=== PATIENT | female | born 1955 | race Caucasian/White ===

== ENCOUNTER → 2016-12-17 | Outpatient (CLI) | payer BC ==
--- NOTE | 2016-12-18 09:14 | RADRPT ---
PROCEDURE: XR pelvis/right hip. CLINICAL INDICATION: Hip pain TECHNIQUE: AP pelvis/AP and lateral right hip views performed COMPARISON: No prior studies are available for comparison. FINDINGS: There is moderate to severe right hip osteoarthrosis. This is associated with joint space narrowing, subchondral sclerosis , subchondral cyst formation and osteophytosis. There is normal mineralizati on. No fractures or osseous lesions are identified. The soft tissues are unremarkable. IMPRESSION: Moderate to severe right hip osteoarthrosis. RPTAT: HGDB .Mason Kyle MD, MD Date Time Electronically viewed and signed by .Mason Kyle MD, on 12/18/2016 09:14 .B/
== END | disposition home or self-care (01) ==
LOC: HKI 10:01
PROVIDERS: ATTEND Orthopaedic Surgery
DX: M25.551 Pain in right hip (principal); M16.11 Unilateral primary osteoarthritis, right hip
CPT/HCPCS: 73502; G0463

== ENCOUNTER → 2017-01-16 | Outpatient (CLI) | payer BC ==
[~2017-01-16] MED LIST: ALEN40TA2 PO; ASPI325T32 PO; ESTR2TAB PO; GABA300C16 PO; HYDR-3498 PO; NAPR-688 PO; PANT40TA4 PO; TRAM-40 PO; TRAM50TA2 PO; TRAZ100T15 PO
== END | disposition home or self-care (01) ==
LOC: HKI 09:19
PROVIDERS: ATTEND Orthopaedic Surgery
DX: M25.551 Pain in right hip (principal); M16.11 Unilateral primary osteoarthritis, right hip
CPT/HCPCS: 87081; G0463

== ENCOUNTER 2017-01-22 08:09 | Inpatient (IN) | payer BC ==
[2017-01-21 16:20] VITALS: BMI 21.7
[2017-01-22] VITALS (27 sets, daily range): BP systolic 95–127; BP diastolic 41–87; PULSE 75–98; RESP 12–36; Ht 165.1 cm; Wt 60.8 kg
[~2017-01-22] VITALS: Ht 165.1 cm; Wt 60.8 kg
[~2017-01-22 08:09] MED LIST changes: -ALEN40TA2 PO; -ASPI325T32 PO; +BUPIVACAINE LIPOSOME/PF 266 MG/20 ML VIAL INFIL ONE; +CEFAZOLIN 2GM/50 ML (PMX) 50 ML X1 BEFORE INCISION IVPB ONE; +CELECOXIB 400 MG PO X1 DOSE PO ONE; -ESTR2TAB PO; +ETOMIDATE 20 MG INJ ONE; -GABA300C16 PO; -HYDR-3498 PO; -NAPR-688 PO; +PAIN COCKTAIL-CEFUROXIME IRR ONE; -PANT40TA4 PO; +PREGABALIN 300 MG PO X1 PO ONE; +PROPOFOL 1000 MG INJ ONE; -TRAM-40 PO; -TRAM50TA2 PO; +TRANEXAMIC ACID in SOD CHLORIDE 0.9% 100 ML FOR INTRAOP IVPB ONE; +TRANEXAMIC ACID in SOD CHLORIDE 0.9% 100 ML ON CALL TO OR IV ONE; -TRAZ100T15 PO; +oxyCODONE (CR) 10 MG TAB [oxyCONTIN] X1 DOSE PO ONE; +traMADOL 50 MG TAB X 1 DOSE PO ONE
[2017-01-22] MEDS ORDERED: GLYCOPYRROLATE 0.4 MG INJ ONE (08:38)
[2017-01-22] MEDS ORDERED: ONDANSETRON 4 MG INJ ONE (08:38)
[2017-01-22] MEDS ORDERED: CEFAZOLIN 1 GM INJ ONE (08:38)
[2017-01-22] MEDS ORDERED: MIDAZOLAM 1 MG/ML 2 ML INJ ONE (08:38)
[2017-01-22] MEDS ORDERED: PROPOFOL 20 ML ONE (08:38)
[2017-01-22] MEDS ORDERED: FENTAnyl 50 MCG/ML VIAL ONE (08:38)
[2017-01-22] MEDS ORDERED: NEOSTIGMINE 3 MG/3 ML SYRINGE ONE (08:38)
[2017-01-22] MEDS ORDERED: DEXAMETHASONE 4 MG/ML 1 ML INJ ONE (08:38)
[2017-01-22] MEDS ORDERED: ROCURONIUM 50 MG INJ ONE (08:38)
[2017-01-22] MEDS ORDERED: TRAM-40 PO (09:09)
[2017-01-22] MEDS ORDERED: TRAZ100T15 PO (09:09)
[2017-01-22] MEDS ORDERED: ALEN40TA2 PO (09:09)
[2017-01-22] MEDS ORDERED: ESTR2TAB PO (09:09)
[2017-01-22] MEDS ORDERED: GABA300C16 PO (09:29)
[2017-01-22] MEDS ORDERED: NAPR-688 PO (09:30)
--- NOTE | 2017-01-22 09:50 | HPN ---
Date/Time of Note Date/Time of Note DATE: 01/22/17 TIME: 09:50 Interval H&P Admission Note Pt. seen H&P reviewed: No system changes No changes from H&P on 01/15/17 by SIRENA Samuel MD Jan 22, 2017 09:50
[2017-01-22] MEDS ORDERED: EXPAREL NOTE (BUPIVICAINE LIPOSOMAL) XX SCH (11:00)
[2017-01-22] MEDS ORDERED: POLYMYXIN B 500000 UNIT INJ ONE (11:15)
[2017-01-22] MEDS ORDERED: VANCOMYCIN 1 GM INJ ONE (11:15)
[2017-01-22] MEDS ORDERED: LABETALOL HCL 20MG INJ IV PRN (12:00)
[2017-01-22] MEDS ORDERED: hydrALAzine 20 MG INJ IV PRN (12:00)
[2017-01-22] MEDS ORDERED: EPHEDrine SULFATE 50 MG/5 ML SYG IV PRN (12:00)
[2017-01-22] MEDS ORDERED: HYDROmorphONE (0.2 MG/ML) 10ML SYG IV PRN ×3 (12:00)
[2017-01-22] MEDS ORDERED: FENTAnyl 50 MCG/ML VIAL IV PRN ×3 (12:00)
[2017-01-22] MEDS ORDERED: TRIMETHOBENZAMIDE 100 MG/ML VIAL IM PRN (12:00)
[2017-01-22] MEDS ORDERED: ONDANSETRON 4 MG INJ IV PRN ×2 (12:00→13:30)
[2017-01-22] MEDS ORDERED: BACITRACIN 50000 UNITS INJ IRR ONE (12:00)
[2017-01-22] MEDS ORDERED: MIDAZOLAM 1 MG/ML 2 ML INJ IV PRN (12:00)
[2017-01-22] MEDS ORDERED: MEPERIDINE 25 MG INJ IV PRN (12:00)
[2017-01-22] MEDS ORDERED: DIPHENHYDRAMINE 50 MG INJ IV PRN (12:00)
--- NOTE | 2017-01-22 13:23 | OPR ---
Date/Time of Note Date/Time of Note DATE: 01/22/17 TIME: 13:22 Operative Report Free Text/Dictation Dictation # [id number] Procedure Date: Jan 22, 2017 Preoperative Diagnosis Right Hip OA Postoperative Diagnosis Same Operation Performed Right Anterior ADRIANO Surgeon: SIRENA ROBLES MD senior care assistant: MARIA TERESA SANCHEZ PA-C Anesthesia: general, spinal Anesthesiologist: Shaw Cervantes M.D. Estimated Blood Loss: 250 - 300 ml's Specimens Femoral Head Tubes/Drains Hemovac x 1 Complications: None Pt Condition Post Procedure: stable Disposition: PACU SIRENA ROBLES MD Jan 22, 2017 13:23
--- NOTE | 2017-01-22 13:26 | PN ---
Date/Time of Note Date/Time of Note DATE: 01/22/17 TIME: 13:25 Assessment/Plan Lines/Catheters IV Catheter Type (from Nrsg): Peripheral IV Assessment/Plan Assessment/Plan Stable in PACU, s/p right anterior ADRIANO -continue Ancef -pain meds as needed -ASA/SCDs -OOB with PT -check AM labs -monitor drain -d/c vivas in AM XR of the right hip is pending at this time Subjective 24 Hr Interval Summary Stable in PACU. Denies pain. Moving all extremities. Exam/Review of Systems Vital Signs Vitals Vital Signs Date Time Temp Pulse Resp B/P Pulse Ox O2 Delivery O2 Flow Rate FiO2 01/22/17 09:11 98.0 77 16 119/56 98 Room Air Intake and Output 01/21/17 01/21/17 01/22/17 15:00 23:00 07:00 Intake Total 0 ml Balance 0 ml Exam Free Text/Dictation Hemovac: minimal Dressing dry Incision clean, dry, and intact without redness or drainage 5/5 Quadriceps, Tibialis Anterior, EHL, Gastroc, Soleus, Peroneals Normal sensation Palpable DT/PT, CR <2 sec No distal edema MARIA TERESA SANCHEZ PA-C Jan 22, 2017 13:26
--- NOTE | 2017-01-22 13:28 | OPR ---
DATE OF OPERATION: 01/22/2017 PREOPERATIVE DIAGNOSIS: Right hip osteoarthritis. POSTOPERATIVE DIAGNOSIS: Right hip osteoarthritis. PROCEDURE PERFORMED: Right anterior total hip arthroplasty. SURGEON: Sirena Ortiz MD FOLDED TOWEL MACHINE OPERATOR: NANI Pina COMPONENTS USED: DePuy size 50 mm Gription Tippo cup, 50/32 neutral AltrX polyethylene liner, si ze 5 standard Actis stem, 32 plus 1 ceramic head. ANESTHESIA: Spinal plus general endotracheal intubation, plus periarticular injection. ANESTHESIOLOGIST: Shaw Cervantes MD ESTIMATED BLOOD LOSS: 300 mL. INTRAVENOUS FLUIDS: 2300 mL crystalloid. SPECIMEN: Femoral head. DRAINS: Hemovac x1. COMPLICATIONS: None. DISPOSITION: The patient tolerated the procedure well and was taken to the recovery room in stable condition. INDICATIONS: The patient is a 61-year-old woman who has had progressive worsening pain in the right hip. She underwent a previous right hip arthroscopy and subsequently developed worsening pain and arthritic changes. She has not improved with nonsurgical means of treatment to address her pain. I felt she would benefit from a total hip arthroplasty through an anterior approach. The risks, benefits, and alternatives of the procedure were explained in detail to the patient. I e xplained the risks of the surgery to include, but not be limited to: bleeding and possible need for blood transfusion; infection; pain; stiffness; neurovascular injury with possible numbness, weakness , and/or paralysis anywhere from the hip down to the toes; fracture; instability; dislocation; leg l ength inequality; wear and/or loosening of the prosthesis and possible need for future revision; blo od clots; pulmonary embolism; and anesthetic complications such as heart attack, stroke, GI bleed, p neumonia, and/or . Ample time was allowed for the patient to ask questions, all of which were addressed and answered. The patient understood the risks involved and wished to proceed. Informed c onsent was signed prior to the procedure. PROCEDURE: The patient's right hip was initialed with a marking pen in the preoperative area to iden tify the correct operative site. The patient was brought to the operating room and [facility] to the [facility] where a spinal anesthetic was administered. The patient was then anesthetized and intubated. A Sterling catheter was placed. Both feet were placed into well padd ed boots which were then placed into the leg holders of the traction booms. A timeout was performed to confirm that the right side was the correct operative site. The patient was given 2 g of intrav enous Ancef within one hour prior to the procedure. The operative hip was prepped and draped in the usual sterile fashion. A 10 cm oblique incision was made over the anterior aspect of the hip and carried down through subcu taneous tissue and fat with sharp dissection. The tensor fascia almas was incised along the length o f the wound. The tensor fascia muscle was retracted laterally and the sartorius medially. The anter ior circumflex vessels were identified and tied off with 2-0 silk suture and coagulated with the Heap la nena Link plating inspector. The rectus femoris was elevated off the anterior capsule and an anterior capsu lectomy performed. A femoral neck osteotomy was made and the head removed from the acetabulum. The acetabulum was denuded of cartilage circumferentially, as was the femoral head. Retractors were pl aced around the acetabulum. The remnants of the labrum and ligamentum teres were excised. I reamed the acetabulum to the medial wall and then went into an anatomic position and increased the reamer size in 2 mm increments until I got a good bite and was down to bleeding subchondral bone. The Tippo cup was opened and impacted into the acetabulum and sat flush circumferentially, gettin g a good bite. C-arm imaging showed it had about 40 to 45 degrees of abduction and 20 degrees of ant eversion. The real liner was opened and impacted into the acetabulum and sat flush circumferentiall y. Attention was turned towards the femur. The operative leg was carefully lowered to the floor with the leg adducted. The foot was then exter barrington rotated to approximately 110 degrees. A posteromedial release was performed to optimize expos ure. The femoral hook was placed underneath the proximal femur and the hydraulic lift was then used to elevate the femur up out of the wound. The dianne cutter osteotome was used to remove the remai xu overhanging greater trochanter. The femur was then broached, going up in one size increments u ntil it sat flush with the neck cut and a stable fit was achieved. The trial neck and head were ass embled and reduced into the acetabulum. Fluoroscopic imaging showed the components to be in good pos ition and the leg lengths and offsets to be equal. At this point, the trial was dislocated and the trial broach removed. The canal was irrigated and d ried. The real stem was opened and impacted into the femur. The trunnion was irrigated and dried, a nd the real femoral head was impacted onto the trunnion, and reduced into the acetabulum. The soft tissues were infiltrated with a mixture of 150 mg of 0.5% bupivacaine, 8 mg of Duramorph, 3 00 mcg of epinephrine, 30 mg of Toradol, 100 mcg of clonidine, 750 mg of cefuroxime and 86 mL of nor mal saline, followed by an injection of 266 mg of liposomal bupivacaine. At this point the hip was irrigated with a mixture of Betadine/saline and then antibiotic saline with pulsatile lavage. A Hem ovac drain was placed in the deep portion of the wound and brought out the anterolateral thigh. Ther e was good hemostasis. The tensor fascia almas was repaired with a running #1 Vicryl. The deep fat layer was irrigated and closed with 2-0 Stratafix and the subcutaneous layer closed with 3-0 Vicryl and the skin was closed with anthony and then sealed with Dermabond. The drain was secured with 3-0 nylon. The sponge and needle counts were correct at the end of the case. The wound was covered with an occ lusive dressing. The patient was awakened, extubated, and taken to the recovery room in stable cond ition. Dictated By: SIRENA SADLER/ETTA Conf#: [id number] DID#: [id number]
[2017-01-22] MEDS ORDERED: NACL 0.9% 3 ML SYG IV SCH (13:30)
[2017-01-22] MEDS ORDERED: NA PHOSPHATE/BIPHOS 133 ML ENEMA PR PRN (13:30)
[2017-01-22] MEDS ORDERED: DIPHENHYDRAMINE 25 MG CAP PO PRN (13:30)
[2017-01-22] MEDS ORDERED: HYDROCODONE/APAP (5/325) TAB PO PRN (13:30)
[2017-01-22] MEDS ORDERED: BISACODYL 10 MG SUPP PR PRN (13:30)
[2017-01-22] MEDS ORDERED: ASPIRIN (EC) 325 MG TAB PO ONE (13:30)
[2017-01-22 13:35] LABS: ADD UMIC NO; URINE BILIRUBIN (Dip) NEGATIVE (NEGATIVE); URINE BLOOD (Dip) NEGATIVE (NEGATIVE); URINE COLOR LT. YELLOW (YELLOW); URINE GLUCOSE (Dip) NEGATIVE (NEGATIVE); URINE KETONES (Dip) NEGATIVE (NEGATIVE); URINE LEUKOCYTE ESTERASE (Dip) NEGATIVE (NEGATIVE); URINE NITRITE (Dip) NEGATIVE (NEGATIVE); URINE TOTAL PROTEIN (Dip) NEGATIVE (NEGATIVE); URINE UROBILINOGEN (Dip) 0.2 E.U./dL (0.1-1.0)
[2017-01-22] MEDS: traMADol 50 MG TAB PO SCH ×3 (13:43→23:50)
[2017-01-22 13:51] LABS: HEMATOCRIT 34.4 % (37.0-47.0); HEMOGLOBIN 11.1 g/dl (12.0-16.0)
--- NOTE | 2017-01-22 14:01 | CONS ---
DATE OF ADMISSION: 01/22/2017 DATE OF CONSULTATION: 01/22/2017 TYPE OF CONSULTATION: Postoperative Medical Dear Dr. Ortiz: Thank you very much for allowing me to evaluate the above patient, a 61-year-old female who just und erwent right total hip arthroplasty. HISTORICAL EVENTS: As you well know, this patient has had progressive disabling pain involving her right hip and for this elected to proceed with surgery. In the recovery room postoperatively, she i s comfortable without cough, wheezing, shortness of breath, nausea, vomiting, abdominal or chest eder n. CURRENT MEDICATIONS: 1. Alendronate 70 mg per day. 2. Gabapentin 900 mg t.i.d. 3. [place] 3 to 4 times per day. 4. Naprosyn p.r.n. 5. Norethindrone/estradiol. 6. Tramadol p.r.n. 7. Trazodone 100 mg at night. ALLERGIES: NONE. PAST MEDICAL HISTORY: Includes: 1. Osteoarthritis. 2. Irritable bowel. 3. Lumbar radiculopathy. 4. Right labral hip . 5. Right hip arthroscopy in 08/2016. FAMILY HISTORY: Positive for scleroderma. SOCIAL HISTORY: She does not smoke, occasionally drinks. PHYSICAL EXAMINATION: GENERAL: [place] female in no acute distress. VITAL SIGNS: Blood pressure 118/80, pulse 70, respirations are 20, she was afebrile. EYES: Extraocular muscles were full. NOSE, MOUTH, AND THROAT: Normal. NECK: Supple. There was no jugular venous distention, thyroid enlargement or adenopathy. Carotids 2+, no bruits. LUNGS: Clear. HEART: Rhythm regular. No murmur. No third or fourth sound. ABDOMEN: Nontender. Liver and spleen were not palpable. No masses or tenderness were noted. EXTREMITIES: No edema. Calves nontender. IMPRESSION: 1. Stable postoperative right hip replacement. 2. We will evaluate her daily for signs and symptoms of thromboembolic disease despite appropriate deep venous thrombosis prophylaxis. 3. History of lumbar radiculopathy. We will continue gabapentin as she was taking at home. Dictated By: SHAISTA RAJAN/ETTA Conf#: [id number] DID#: [id number]
[2017-01-22] MEDS: LACTATED RINGER'S 1,000 ML IV SCH ×3 (14:12→21:36)
[2017-01-22 14:19] LABS: CALCIUM 8.9 mg/dl (8.4-10.2); CREATININE 0.65 mg/dl (0.44-1.00); POTASSIUM 3.9 mmol/L (3.5-5.1)
--- NOTE | 2017-01-22 14:44 | RADRPT ---
PROCEDURE: XR Pelvis. CLINICAL INDICATION: . Evaluation. TECHNIQUE: Single AP view of the pelvis. COMPARISON: X-ray dated 12/17/2016. FINDINGS: There is postoperative change related to placement of a total right hip arthroplasty without evidenc e of hardware loosening or failure. There is a surgical drain overlying the hip joint and there are skin anthony laterally. There is expected subcutaneous emphysema and edema within the surrounding soft tissue. A Sterling catheter overlies the bladder. The alignment is normal. There is no radiopa que foreign body. IMPRESSION: 1. Expected postoperative change related to placement of a total right hip arthroplasty without maddie dence of complication. RPTAT: GG .Jordan Roy MD, Date Time Electronically viewed and signed by .Jordan Roy MD, on 01/22/2017 14:43 .P/
--- NOTE | 2017-01-22 15:14 | RADRPT ---
PROCEDURE: XR Hip. CLINICAL INDICATION: Postop hip arthroplasty. TECHNIQUE: Right hip x-rays, single frontal view. COMPARISON: 12/17/2016. FINDINGS: Right hip arthroplasty hardware is now in place. The hip joint is intact. Mild postoperative air a nd edema along with a surgical drain are seen within the immediate surrounding soft tissues. IMPRESSION: Surgical changes compatible with right hip arthroplasty. RPTAT: HLST .Elzbieta Raya MD, MD Date Time Electronically viewed and signed by .Elzbieta Raya MD, on 01/22/2017 15:13 .T/
--- NOTE | 2017-01-22 15:16 | RADRPT ---
PROCEDURE: XR Hip. CLINICAL INDICATION: Right hip replacement. TECHNIQUE: Right hip x-rays, 12 intraoperative fluoroscopic views. Fluoroscopy time: 0.5 minutes . COMPARISON: 12/17/2016. FINDINGS: Preliminary images demonstrate right hip osteoarthritis. Final images demonstrate right hip arthrop lasty hardware. The hip joint is intact. IMPRESSION: Surgical changes compatible with right hip replacement. RPTAT: HLST .Elzbieta Raya MD, Date Time Electronically viewed and signed by .Elzbieta Raya MD, MD on 01/22/2017 15:15 .T/
[2017-01-22] MEDS ORDERED: SOD CHLORIDE 0.9% IVPB ONE ×2 (16:30→19:30)
[2017-01-22] MEDS ORDERED: TRANEXAMIC ACID IVPB ONE ×2 (16:30→19:30)
[2017-01-22] MEDS: HYDROCODONE/APAP (5/325) TAB PO PRN (17:01)
[2017-01-22] MEDS ORDERED: CEFAZOLIN 1 GM/50 ML (PMX) 50 ML IVPB ONE (17:27)
[2017-01-22] MEDS ORDERED: CEFAZOLIN 2 GM/50 ML (PMX) 50 ML IVPB ONE (17:29)
[2017-01-22] MEDS: CEFAZOLIN 2 GM/50 ML (PMX) 50 ML IVPB SCH (17:30)
[2017-01-22] MEDS: PANTOPRAZOLE (EC) 40 MG TAB PO SCH (18:51)
[2017-01-22] MEDS: GABAPENTIN 300 MG CAP PO SCH (20:28)
[2017-01-22] MEDS: DOCUSATE SODIUM 100 MG CAP PO SCH (20:28)
[2017-01-22] MEDS: HYDROmorphONE 1 MG/ML SYG IV PRN (20:34)
[2017-01-23 02:00] VITALS: BP 117/58; PULSE 81; RESP 16
[2017-01-23] MEDS: CEFAZOLIN 2 GM/50 ML (PMX) 50 ML IVPB SCH ×2 (02:35→12:09)
[2017-01-23] MEDS: LACTATED RINGER'S 1,000 ML IV SCH ×5 (04:00→21:21)
[2017-01-23] MEDS: HYDROCODONE/APAP (5/325) TAB PO PRN ×4 (04:19→17:04)
[2017-01-23] MEDS: PANTOPRAZOLE (EC) 40 MG TAB PO SCH ×2 (05:25→18:13)
[2017-01-23] MEDS: traMADol 50 MG TAB PO SCH ×3 (05:25→18:13)
[2017-01-23 05:53] LABS: CALCIUM 8.8 mg/dl (8.4-10.2); CREATININE 0.66 mg/dl (0.44-1.00); POTASSIUM 4.6 mmol/L (3.5-5.1)
[2017-01-23 07:00] VITALS: BP 114/56; RESP 18
--- NOTE | 2017-01-23 08:46 | PN ---
Date/Time of Note Date/Time of Note DATE: 01/23/17 TIME: 08:42 Assessment/Plan Lines/Catheters IV Catheter Type (from Nrsg): Peripheral IV Assessment/Plan Assessment/Plan Stable POD #1, s/p right anterior ADRIANO -d/c antibiotics -pain meds as needed -ASA/SCDs for DVT prophylaxis -OOB with PT -continue preoperative Neurontin dose for burning pain -check AM labs -drain removed -d/c planning. Will plan to go home upon discharge Subjective 24 Hr Interval Summary No acute overnight events. Denies pain but is complaining of burning sensation around hip. Took high dose Neurontin prior to surgery for other neuropathy. Did not start PT yesterday. VSS,afebrile. Will plan to go home upon discharge. Exam/Review of Systems Vital Signs Vitals Vital Signs Date Time Temp Pulse Resp B/P Pulse Ox O2 Delivery O2 Flow Rate FiO2 01/23/17 07:00 98.7 79 18 114/56 98 01/23/17 02:00 Room Air 01/22/17 14:20 2.0 Intake and Output 01/22/17 01/22/17 01/23/17 14:59 22:59 06:59 Intake Total 3205.9 ml 1050 ml 2700 ml Output Total 1020 ml 3150 ml Balance 2185.9 ml 1050 ml -450 ml Exam Free Text/Dictation Hemovac: 170cc Dressing dry Incision clean, dry, and intact without redness or drainage 5/5 Quadriceps, Tibialis Anterior, EHL, Gastroc, Soleus, Peroneals Normal sensation Palpable DT/PT, CR <2 sec No distal edema Results Result Diagram: 01/23/17 0500 01/23/17 0500 MARIA TERESA SANCHEZ PA-C Jan 23, 2017 08:46
--- NOTE | 2017-01-23 08:53 | CONS ---
Date/Time of Note Date/Time of Note DATE: 01/23/17 TIME: 08:51 Assessment/Plan Assessment/Plan Additional Assessment/Plan 1. Post op right hip replacement with right thigh pain, ? cause-radicular related to back pathology or local. 2. Known chronic low back pain and sciatica Consultation Date/Type/Reason Admit Date/Time Jan 22, 2017 at 08:09 Initial Consult Date Detailed Summary Respiratory: No cough, No shortness of breath Cardiovascular: No chest pain Gastrointestinal: no complaints Genitourinary: no complaints Musculoskeletal: bone/joint pain (c/o burning right thigh pain different then preop and unlike pain related to back disorder) Exam/Review of Systems Vital Signs Vitals Vital Signs Date Time Temp Pulse Resp B/P Pulse Ox O2 Delivery O2 Flow Rate FiO2 01/23/17 07:00 98.7 79 18 114/56 98 01/23/17 02:00 Room Air 01/22/17 14:20 2.0 Intake and Output 01/22/17 01/22/17 01/23/17 15:00 23:00 07:00 Intake Total 3205.9 ml 1050 ml 2700 ml Output Total 1020 ml 3150 ml Balance 2185.9 ml 1050 ml -450 ml Exam Neck: No jvd Respiratory: clear to auscultation Cardiovascular: regular rate and rhythm Gastrointestinal: soft Extremities: No edema (and no calf tend) Results Result Diagram: 01/23/17 0500 01/23/17 0500 Results 24 hrs Laboratory Tests Test 01/22/17 13:15 01/22/17 13:23 01/23/17 05:00 Hemoglobin 11.1 L 10.0 L Hematocrit 34.4 L 30.0 L Sodium Level 144 141 Potassium Level 3.9 4.6 Chloride Level 113 H 110 Carbon Dioxide Level 24 28 Anion Gap 11 8 Blood Urea Nitrogen 9 7 Creatinine 0.65 0.66 Glucose Level 135 97 Calcium Level 8.9 8.8 Urine Color LT. YELLOW Urine Clarity CLEAR Urine pH 6.0 Urine Specific [place] <=1.005 L Urine Ketones NEGATIVE Urine Nitrite NEGATIVE Urine Bilirubin NEGATIVE Urine Urobilinogen 0.2 E.U./dL Urine Leukocyte Esterase NEGATIVE Urine Hemoglobin NEGATIVE Urine Glucose NEGATIVE Urine Total Protein NEGATIVE Medications Medications Current Medications Lactated Ringer's (Lr) 1,000 ml @ 100 mls/hr Q10H IV ; Start 01/22/17 at 08:00 Miscellaneous Information 1 ea NOTE XX ; Start 01/22/17 at 11:00; Stop 01/26/17 at 10:59 Gabapentin 900 mg 900 mg TID PO Last administered on 01/22/17 20:28; Admin Dose 900 MG; Start 01/22/17 at 21:00 Lactated Ringer's (Lr) 1,000 ml @ 125 mls/hr Q8H IV Last administered on 05:18; Admin Dose 125 MLS/HR; Start 01/22/17 at 13:21 Tramadol HCl (Ultram) 50 mg Q6 PO Last administered on 01/23/17 05:25; Admin Dose 50 MG; Start 01/22/17 at 14:00; Stop 01/25/17 at 13:59 Acetaminophen/ Hydrocodone Bitart ([place] (5/325)) 1 tab Q4H PRN PO PAIN LEVEL 1 -3; Start 01/22/17 at 13:30 Acetaminophen/ Hydrocodone Bitart ([place] (5/325)) 2 tab Q4H PRN PO PAIN LEVEL 4 -7 Last administered on 01/23/17 04:19; Admin Dose 2 TAB; Start 01/22/17 at 13:30 Hydromorphone HCl 1 mg 1 mg Q3H PRN IV PAIN LEVEL 8-10 Last administered on 01/22 20:34; Admin Dose 1 MG; Start 01/22/17 at 13:30 Cefazolin Sodium/ Dextrose (Ancef 2 Gm/50 ml (Pmx)) 50 ml @ 100 mls/hr Q8H IVPB Last administered on 01/23/17 02:35; Admin Dose 100 MLS/HR; Start 01/22/17 at 18:45; Stop 01/23/17 at 11:14 Ondansetron HCl (Zofran Inj) 4 mg Q6H PRN IV NAUSEA AND/OR VOMITING; Start 01/22 at 13:30 Bisacodyl (Dulcolax Supp) 10 mg Q12H PRN ID CONSTIPATION; Start 01/22/17 at 13: 30 Magnesium Hydroxide (Milk Of Mag) 30 ml BID PRN PO CONSTIPATION; Start 01/22/17 at 13:30 Sodium Biphosphate/ Sodium Phosphate (Fleet Enema) 133 ml DAILY PRN ID CONSTIPATION; Start 01/22/17 at 13:30 Docusate Sodium (Colace) 100 mg BID PO Last administered on 01/22/17 20:28; Admin Dose 100 MG; Start 01/22/17 at 21:00 Diphenhydramine HCl (Benadryl) 25 mg Q6H PRN PO PRURITUS; Start 01/22/17 at 13: 30 Aspirin (Ecotrin) 325 mg BID PO ; Start 01/23/17 at 09:00 Pantoprazole (Protonix Tab) 40 mg BID@06,18 PO Last administered on 01/23/17 05 :25; Admin Dose 40 MG; Start 01/22/17 at 18:00 SHAISTA PRECIADO MD Jan 23, 2017 08:53
[2017-01-23] MEDS: ASPIRIN (EC) 325 MG TAB PO SCH ×2 (08:54→21:10)
[2017-01-23] MEDS: DOCUSATE SODIUM 100 MG CAP PO SCH ×2 (08:54→21:10)
[2017-01-23] MEDS: GABAPENTIN 300 MG CAP PO SCH ×3 (08:54→21:10)
[2017-01-23 09:03] LABS: ADD UMIC NO; URINE BILIRUBIN (Dip) NEGATIVE (NEGATIVE); URINE BLOOD (Dip) NEGATIVE (NEGATIVE); URINE COLOR LT. YELLOW (YELLOW); URINE GLUCOSE (Dip) NEGATIVE (NEGATIVE); URINE KETONES (Dip) NEGATIVE (NEGATIVE); URINE LEUKOCYTE ESTERASE (Dip) NEGATIVE (NEGATIVE); URINE NITRITE (Dip) NEGATIVE (NEGATIVE); URINE TOTAL PROTEIN (Dip) NEGATIVE (NEGATIVE); URINE UROBILINOGEN (Dip) 0.2 E.U./dL (0.1-1.0)
--- NOTE | 2017-01-23 15:09 | PDOCDIS ---
Discharge Instructions DIAGNOSIS Discharge Diagnosis: s/p right anterior ADRIANO CONDITION Patient Condition: Good HOME CARE INSTRUCTIONS: Diet Instructions: RegularSpecial Diet: REGULAR DIET ACTIVITY: Activity Restrictions: Slowly Increase Activity Rest between Activity Avoid heavy lifting Do not operate Machinery Do not operate Power Tool Avoid Heavy Housework Keep Limb Elevated Weight Bearing Bathing Restrictions: Shower FOLLOW UP/APPOINTMENTS Appointments follow up in the office on 02/02/17 OTHER ORDERS: Other Orders: S/P Anterior ADRIANO Physical Therapy: Three times per week at home x 2 weeks Daily in Rehab/SNF WB STATUS: WBAT Strengthening exercises for both upper and un-operated lower extremities. 1. Gait training with front wheeled walker 2. Wide base gait, no pivot turns. 3. Abductor strengthening. 4. Quadriceps and hamstring strengthening. 5. May switch to cane in contra lateral hand 6 weeks after surgery. 6. Physical Therapy can open case if nursing is not available. 7. Ice Packs while at rest to surgical wound for 20 minutes, 3 times/day. 8. Patient requires mobile SCDs to reduce risk of developing DVT following ADRIANO. Patient will use the mobile SCDs for 30 days postoperatively. Hip Precautions: No posterior hip precautions. Bathing assistance by home health aide twice weekly if Medicare patient. Occupational Therapy: Evaluation for assistive devices and ADL training. Wound Care: Keep incision dry & covered with Tegaderm until first visit with Dr. Ortiz Anticoagulation Orders: Enteric Coated Aspirin 325 mg po bid x 6 weeks from date of surgery Follow-up:Call for an appointment with Dr. Ortiz in 1 week after discharged from hospital at DME Orders: GEE, 3-in-1 Commode, Mobile SCDs MARIA TERESA SANCHEZ PA-C Jan 23, 2017 15:09
[2017-01-23] MEDS ORDERED: ASPI325T32 PO (16:10)
[2017-01-23] MEDS ORDERED: HYDR-3498 PO (16:10)
[2017-01-23] MEDS ORDERED: PANT40TA4 PO (16:10)
[2017-01-23] MEDS ORDERED: TRAM50TA2 PO (16:10)
[2017-01-23] MEDS: ESTRADIOL 1 MG TAB PO SCH (17:04)
[2017-01-23 21:18] VITALS: BP 119/58; RESP 18
[2017-01-23] MEDS: HYDROmorphONE 1 MG/ML SYG IV PRN (21:43)
[2017-01-24] MEDS: traMADol 50 MG TAB PO SCH ×4 (00:36→17:34)
[2017-01-24] MEDS: HYDROmorphONE 1 MG/ML SYG IV PRN (01:28)
[2017-01-24] MEDS: LACTATED RINGER'S 1,000 ML IV SCH ×6 (05:21→21:21)
[2017-01-24] MEDS: PANTOPRAZOLE (EC) 40 MG TAB PO SCH ×2 (06:04→17:34)
[2017-01-24 07:00] VITALS: BP 109/51; RESP 18
[2017-01-24 07:34] LABS: HEMOGLOBIN 10.1 g/dl (12.0-16.0)
[2017-01-24 07:57] LABS: CALCIUM 8.1 mg/dl (8.4-10.2); CREATININE 0.71 mg/dl (0.44-1.00); POTASSIUM 3.7 mmol/L (3.5-5.1)
[2017-01-24] MEDS: MAGNESIUM HYDROXIDE 30ML CUP PO PRN (08:30)
[2017-01-24] MEDS: GABAPENTIN 300 MG CAP PO SCH ×3 (08:30→20:44)
[2017-01-24] MEDS: HYDROCODONE/APAP (5/325) TAB PO PRN ×4 (08:31→23:10)
[2017-01-24] MEDS: ASPIRIN (EC) 325 MG TAB PO SCH ×2 (08:31→20:44)
[2017-01-24] MEDS: DOCUSATE SODIUM 100 MG CAP PO SCH ×2 (08:31→20:44)
[2017-01-24] MEDS: ESTRADIOL 1 MG TAB PO SCH (08:33)
--- NOTE | 2017-01-24 11:51 | PN ---
Date/Time of Note Date/Time of Note DATE: 01/24/17 TIME: 11:49 Assessment/Plan Lines/Catheters IV Catheter Type (from Nrsg): Saline Lock Sterling in Place (from Nrsg): No Assessment/Plan Assessment/Plan POD #2, s/p right anterior ADRIANO -pain meds as needed -ASA/SCDs for DVT prophylaxis -continue preoperative Neurontin dose -OOB with PT -dressing changed -check AM labs -will check venous doppler to r/o DVT for other etiology of burning pain ( low suspicion for DVT) -d/c planning Subjective 24 Hr Interval Summary No acute overnight events. Denies significant pain but is complaining of "burning sensation" to anterior thigh. Denies f/c. Currently on her normal pre- operative Neurontin dose. Progressing well with PT. Exam/Review of Systems Vital Signs Vitals Vital Signs Date Time Temp Pulse Resp B/P Pulse Ox O2 Delivery O2 Flow Rate FiO2 01/24/17 07:00 98.6 91 18 109/51 97 01/23/17 02:00 Room Air 01/22/17 14:20 2.0 Intake and Output 01/23/17 01/23/17 01/24/17 15:00 23:00 07:00 Intake Total 530 ml 3205 ml 1300 ml Output Total 2100 ml 2000 ml Balance 530 ml 1105 ml -700 ml Exam Free Text/Dictation Dressing dry Incision clean, dry, and intact without redness or drainage 5/5 Quadriceps, Tibialis Anterior, EHL, Gastroc, Soleus, Peroneals Normal sensation Palpable DT/PT, CR <2 sec No distal edema Results Result Diagram: 01/24/17 0704 01/24/17 07 MARIA TREESA SANCHEZ PA-C Jan 24, 2017 11:51
--- NOTE | 2017-01-24 11:51 | CONS ---
Date/Time of Note Date/Time of Note DATE: 01/24/17 TIME: 11:46 Consult Date/Type/Reason Admit Date/Time Jan 22, 2017 at 08:09 Initial Consult Date 01/22/2017 Type of Consultation: Medicine Reason for Consultation Osteoporosis, radicular pain in LE. Ordering Provider: SIRENA ROBLES MD Subjective Patient had chills last night, no fever but doing better. Has not had BM, feels constipated. Denies nausea, vomiting, abd pain, chest pain, sob, cough. Does endorse radicular pain in distribution of anterior/lateral cutaneous femoral nerve. This is new. Her chronic radiculopathy is on the left side in similar distribution. Objective Vital Signs Date Time Temp Pulse Resp B/P Pulse Ox O2 Delivery O2 Flow Rate FiO2 01/24/17 07:00 98.6 91 18 109/51 97 01/23/17 02:00 Room Air 01/22/17 14:20 2.0 Intake and Output 01/23/17 01/23/17 01/24/17 15:00 23:00 07:00 Intake Total 530 ml 3205 ml 1300 ml Output Total 2100 ml 2000 ml Balance 530 ml 1105 ml -700 ml Exam Gen-NAD, alert and oriented to person, place, time, situation HEENT-op clear, mmm, no scleral icterus CV-rrr, nml s1/s2, no m/r/g pulm-ctab on anterior/lateral exam Abd-soft, nt/ND, +bs ext-no c/c/e Results/Medications Result Diagram: 01/24/17 0704 01/24/17 0704 Results 24 hrs Laboratory Tests Test 01/24/17 07:04 Hemoglobin 10.1 L Hematocrit 31.0 L Sodium Level 138 Potassium Level 3.7 Chloride Level 106 Carbon Dioxide Level 26 Anion Gap 10 Blood Urea Nitrogen 8 Creatinine 0.71 Glucose Level 96 Calcium Level 8.1 L Medications Current Medications Lactated Ringer's (Lr) 1,000 ml @ 100 mls/hr Q10H IV ; Start 01/22/17 at 08:00 Miscellaneous Information 1 ea NOTE XX ; Start 01/22/17 at 11:00; Stop 01/26/17 at 10:59 Gabapentin 900 mg 900 mg TID PO Last administered on 01/24/17t 08:30; Admin Dose 900 MG; Start 01/22/17 at 21:00 Lactated Ringer's (Lr) 1,000 ml @ 125 mls/hr Q8H IV Last administered on 09:03; Admin Dose 125 MLS/HR; Start 01/22/17 at 13:21 Tramadol HCl (Ultram) 50 mg Q6 PO Last administered on 01/24/17 06:05; Admin Dose 50 MG; Start 01/22/17 at 14:00; Stop 01/25/17 at 13:59 Acetaminophen/ Hydrocodone Bitart ([place] (5/325)) 1 tab Q4H PRN PO PAIN LEVEL 1 -3; Start 01/22/17 at 13:30 Acetaminophen/ Hydrocodone Bitart ([place] (5/325)) 2 tab Q4H PRN PO PAIN LEVEL 4 -7 Last administered on 01/24/17 08:31; Admin Dose 2 TAB; Start 01/22/17 at 13: 30 Hydromorphone HCl (Dilaudid) 1 mg Q3H PRN IV PAIN LEVEL 8-10 Last administered on 01/24/17 01:28; Admin Dose 1 MG; Start 01/22/17 at 13:30 Ondansetron HCl (Zofran Inj) 4 mg Q6H PRN IV NAUSEA AND/OR VOMITING Last administered on 01/24/17 06:04; Admin Dose 4 MG; Start 01/22/17 at 13:30 Bisacodyl (Dulcolax Supp) 10 mg Q12H PRN [place] CONSTIPATION; Start 01/22/17 at 13: 30 Magnesium Hydroxide (Milk Of Mag) 30 ml BID PRN PO CONSTIPATION Last administered on 01/24/17 08:30; Admin Dose 30 ML; Start 01/22/17 at 13:30 Sodium Biphosphate/ Sodium Phosphate (Fleet Enema) 133 ml DAILY PRN [place] CONSTIPATION; Start 01/22/17 at 13:30 Docusate Sodium (Colace) 100 mg BID PO Last administered on 01/24/17 08:31; Admin Dose 100 MG; Start 01/22/17 at 21:00 Diphenhydramine HCl (Benadryl) 25 mg Q6H PRN PO PRURITUS; Start 01/22/17 at 13: 30 Aspirin (Ecotrin) 325 mg BID PO Last administered on 01/24/17 08:31; Admin Dose 325 MG; Start 01/23/17 at 09:00 Pantoprazole (Protonix Tab) 40 mg BID@18 PO Last administered on 01/24/17 06:04; Admin Dose 40 MG; Start 01/22/17 at 18:00 Estradiol (Estrace) 2.5 mg DAILY PO Last administered on 01/24/17 08:33; Admin Dose 2.5 MG; Start 01/23/17 at 16:00 Assessment/Plan Chief Complaint/Hosp Course 61 y/o female [facility] osteoporosis s/p R hip replacement 01/22/2017 Problems: Additional Assessment/Plan #s/p R hip replacement -ASA for DVT ppx -pain meds per ortho -PT #constipation -continue current bowel regimen but will add miralax #radiculopathy in R anterior thigh-consider meralgia paresthetica from inflammation or traction of procedure -US ordered to rule out dvt, hematoma -differ management to ortho at this time #osteoporosis -hold alendronate Dispo: pending clinical improvement patient can be discharged home with home health in 1-2 days. TREMAINE LASSITER MD Jan 24, 2017 11:51
--- NOTE | 2017-01-24 12:32 | RADRPT ---
PROCEDURE: US Lower extremity venous CLINICAL INDICATION: Right lower extremity pain, evaluate for DVT TECHNIQUE: Multiple sonographic images of the right lower extremity deep venous system was obtain ed utilizing grayscale, color-flow, compressive sonography and doppler imaging with augmentation. T he images were reviewed on a PACS workstation. COMPARISON: None. FINDINGS: There is normal compressibility and flow within the right common femoral, superficial femoral , po sterior tibial, peroneal and popliteal veins. IMPRESSION: No sonographic evidence for deep venous thrombosis in the right lower extremity. RPTAT: EE Physician Joaquin Date Time Electronically viewed and signed by Physician Joaquin on 01/24/2017 12:31 RA/
[2017-01-24] MEDS: POLYETHYLENE GLYCOL 17 GM PACKET PO SCH (12:39)
[2017-01-24 20:00] VITALS: BP 98/52; PULSE 95; RESP 18
[2017-01-25] MEDS: traMADol 50 MG TAB PO SCH ×4 (00:17→12:00)
[2017-01-25] MEDS: HYDROCODONE/APAP (5/325) TAB PO PRN ×2 (03:41→08:38)
[2017-01-25] MEDS: LACTATED RINGER'S 1,000 ML IV SCH ×2 (05:21→06:00)
[2017-01-25] MEDS: PANTOPRAZOLE (EC) 40 MG TAB PO SCH (06:49)
[2017-01-25] MEDS: MAGNESIUM HYDROXIDE 30ML CUP PO PRN (06:49)
[2017-01-25 07:41] VITALS: BP 100/49; RESP 18
[2017-01-25] MEDS: ESTRADIOL 1 MG TAB PO SCH (08:38)
[2017-01-25] MEDS: ASPIRIN (EC) 325 MG TAB PO SCH (08:38)
[2017-01-25] MEDS: DOCUSATE SODIUM 100 MG CAP PO SCH (08:38)
[2017-01-25] MEDS: POLYETHYLENE GLYCOL 17 GM PACKET PO SCH (08:39)
[2017-01-25] MEDS: GABAPENTIN 300 MG CAP PO SCH (08:39)
--- NOTE | 2017-01-25 10:06 | PN ---
Date/Time of Note Date/Time of Note DATE: 01/25/17 TIME: 10:04 Assessment/Plan Lines/Catheters IV Catheter Type (from Nrsg): Saline [place] in Place (from Nrsg): No Assessment/Plan Assessment/Plan POD #3, s/p right anterior ADRIANO -pain meds as needed -continue preoperative Neurontin -ASA/SCDs for DVT prophylaxis -OOB with PT -dressing changed -d/c home today -follow up in the office in 1 week Subjective 24 Hr Interval Summary No acute overnight events. Denies pain and states burning sensation has improved. VSS, afebrile. Doppler negative for DVT. Will plan to go home today. Exam/Review of Systems Vital Signs Vitals Vital Signs Date Time Temp Pulse Resp B/P Pulse Ox O2 Delivery O2 Flow Rate FiO2 01/25/17 07:41 97.8 74 18 100/49 95 01/24/17 20:00 Room Air 01/22/17 14:20 2.0 Intake and Output 01/24/17 01/24/17 01/25/17 15:00 23:00 07:00 Intake Total 1500 ml 900 ml Output Total 1800 ml 1000 ml Balance -300 ml -100 ml Exam Free Text/Dictation Dressing dry Incision clean, dry, and intact without redness or drainage 5/5 Quadriceps, Tibialis Anterior, EHL, Gastroc, Soleus, Peroneals Normal sensation Palpable DT/PT, CR <2 sec No distal edema Results Result Diagram: 01/24/17 0701/24/17 07 MARIA TERESA SANCHEZ PA-C Jan 25, 2017 10:06
[2017-01-25 10:11] LABS: HEMATOCRIT 30.6 % (37.0-47.0); HEMOGLOBIN 9.6 g/dl (12.0-16.0)
[2017-01-25 10:39] LABS: CALCIUM 8.6 mg/dl (8.4-10.2); CREATININE 0.7 mg/dl (0.44-1.00); POTASSIUM 4.1 mmol/L (3.5-5.1)
--- NOTE | 2017-01-25 11:38 | CONS ---
Date/Time of Note Date/Time of Note DATE: 01/25/17 TIME: 11:35 Consult Date/Type/Reason Admit Date/Time Jan 22, 2017 at 08:09 Initial Consult Date 01/22/2017 Type of Consultation: Medicine Reason for Consultation Osteoporosis, meralgia paresthetica Ordering Provider: SIRENA ROBLES MD Subjective Patient doing well this am. Denies fevers, chills, nausea, vomiting, diarrhea, chest pain, sob, cough, abd pain. Doing ok with PT. Pain adequately controlled. Duplex RLE negative. Burning sensation in RLE improved. Objective Vital Signs Date Time Temp Pulse Resp B/P Pulse Ox O2 Delivery O2 Flow Rate FiO2 01/25/17 07:41 97.8 74 18 100/49 95 01/24/17 20:00 Room Air 01/22/17 14:20 2.0 Intake and Output 01/24/17 01/24/17 01/25/17 15:00 23:00 07:00 Intake Total 1500 ml 900 ml Output Total 1800 ml 1000 ml Balance -300 ml -100 ml Exam Gen-NAD, alert and oriented to person, place, time, situation HEENT-op clear, mmm, no scleral icterus CV-rrr, nml s1/s2, no m/r/g pulm-ctab Abd-soft, nt/ND, +bs ext-no c/c/e Results/Medications Result Diagram: 01/25/1755 01/25/17 0955 Results 24 hrs Laboratory Tests Test 01/25/17 09:55 Hemoglobin 9.6 L Hematocrit 30.6 L Sodium Level 140 Potassium Level 4.1 Chloride Level 104 Carbon Dioxide Level 32 H Anion Gap 8 Blood Urea Nitrogen 7 Creatinine 0.70 Glucose Level 108 Calcium Level 8.6 Medications Current Medications Lactated Ringer's (Lr) 1,000 ml @ 100 mls/hr Q10H IV ; Start 01/22/17 at 08:00 Miscellaneous Information 1 ea NOTE XX ; Start 01/22/17 at 11:00; Stop 01/26/17 at 10:59 Gabapentin 900 mg 900 mg TID PO Last administered on 01/25/17t 08:39; Admin Dose 900 MG; Start 01/22/17 at 21:00 Lactated Ringer's (Lr) 1,000 ml @ 125 mls/hr Q8H IV Last administered on 09:03; Admin Dose 125 MLS/HR; Start 01/22/17 at 13:21 Tramadol HCl (Ultram) 50 mg Q6 PO Last administered on 01/25/17 06:49; Admin Dose 50 MG; Start 01/22/17 at 14:00; Stop 01/25/17 at 13:59 Acetaminophen/ Hydrocodone Bitart ([place] (5/325)) 1 tab Q4H PRN PO PAIN LEVEL 1 -3; Start 01/22/17 at 13:30 Acetaminophen/ Hydrocodone Bitart ([place] (5/325)) 2 tab Q4H PRN PO PAIN LEVEL 4 -7 Last administered on 01/25/17 08:38; Admin Dose 2 TAB; Start 01/22/17 at 13: 30 Hydromorphone HCl (Dilaudid) 1 mg Q3H PRN IV PAIN LEVEL 8-10 Last administered on 01/24/17 01:28; Admin Dose 1 MG; Start 01/22/17 at 13:30 Ondansetron HCl (Zofran Inj) 4 mg Q6H PRN IV NAUSEA AND/OR VOMITING Last administered on 01/24/17 06:04; Admin Dose 4 MG; Start 01/22/17 at 13:30 Bisacodyl (Dulcolax Supp) 10 mg Q12H PRN [place] CONSTIPATION; Start 01/22/17 at 13: 30 Magnesium Hydroxide (Milk Of Mag) 30 ml BID PRN PO CONSTIPATION Last administered on 01/25/17 06:49; Admin Dose 30 ML; Start 01/22/17 at 13:30 Sodium Biphosphate/ Sodium Phosphate (Fleet Enema) 133 ml DAILY PRN [place] CONSTIPATION; Start 01/22/17 at 13:30 Docusate Sodium (Colace) 100 mg BID PO Last administered on 01/25/17 08:38; Admin Dose 100 MG; Start 01/22/17 at 21:00 Diphenhydramine HCl (Benadryl) 25 mg Q6H PRN PO PRURITUS; Start 01/22/17 at 13: 30 Aspirin (Ecotrin) 325 mg BID PO Last administered on 01/25/17 08:38; Admin Dose 325 MG; Start 01/23/17 at 09:00 Pantoprazole (Protonix Tab) 40 mg BID@,18 PO Last administered on 01/25/17 06:49; Admin Dose 40 MG; Start 01/22/17 at 18:00 Estradiol (Estrace) 2.5 mg DAILY PO Last administered on 01/25/17 08:38; Admin Dose 2.5 MG; Start 01/23/17 at 16:00 Polyethylene Glycol (Miralax) 17 gm DAILY PO Last administered on 01/25/17 08: 39; Admin Dose 17 GM; Start 01/24/17 at 12:00 Assessment/Plan Chief Complaint/Hosp Course 61 y/o female [facility] osteoporosis s/p R hip replacement 01/22/2017 Problems: Additional Assessment/Plan #s/p R hip replacement -ASA for DVT ppx -pain meds per ortho -PT #constipation -continue current bowel regimen with miralax daily at home until resolved. #radiculopathy in R anterior thigh-consider meralgia paresthetica from inflammation. Improved. No DVT #osteoporosis -hold alendronate until after discharge Dispo: cleared for DC home with home PT TREMAINE LASSITER MD Jan 25, 2017 11:38
--- NOTE | 2017-01-25 15:41 | DS ---
DATE OF ADMISSION: 01/22/2017 DATE OF DISCHARGE: 01/25/2017 CONDITION ON DISCHARGE: Stable. ADMITTING DIAGNOSIS: Right hip osteoarthritis. DISCHARGE DIAGNOSIS: Status post right anterior total hip arthroplasty. HOSPITAL COURSE: This is a 61-year-old female who was seen in the clinic initially complaining of r ight hip pain. X-rays demonstrate advanced osteoarthritis of the right hip, and it was thought she would benefit from right anterior total hip arthroplasty. On 01/22/2017, the patient was admitted a nd taken to the operating room where she underwent a right anterior total hip arthroplasty. There w ere no intraoperative complications. The patient tolerated the procedure well. She was taken to [facility] recovery room in stable condition. Pain was well controlled with oral pain medication. She was s tarted on aspirin and SCDs for DVT prophylaxis. She remained hemodynamically stable and neurovascul rohan intact throughout her hospital stay. She began physical therapy on postoperative day 1 and was deemed stable for discharge on postoperative day 3. Prior to discharge, the incision was inspected and noted to be clean, dry, and intact. Dressing changes were done prior to the patient going home . LABORATORY ANALYSIS: Hemoglobin 10.1, hematocrit 31.0, chemistry panel was within normal limits. DISCHARGE MEDICATIONS: 1. [place] 5/325 mg. 2. Tramadol 50 mg. 3. Protonix 40 mg. 4. Aspirin 325 mg. In addition, the patient is to resume all of her normal home medications. DISCHARGE INSTRUCTIONS: The patient will be discharged home in stable condition. She is to resume a normal diet. She is weightbearing as tolerated on the right lower extremity. She did begin physi ivan therapy with home health. She will be discharged home with the medications noted above is to re sume all of her normal home medications. The patient is to call the office or go to the emergency r oom for any concerns including increased redness, drainage, swelling, fever, or any concerns regardi ng the operation or site of incision. FOLLOWUP: The patient is to follow up in the office on 02/02/2017. Dictated By: MARIA TERESA LYNN/NTS Conf#: [id number] DID#: [id number]
== END 2017-01-25 12:00 | disposition home health service (06) | DRG 470 ==
LOC: REC 08:09 → MS1 17:50
PROVIDERS: ADMIT Orthopaedic Surgery; ATTEND Orthopaedic Surgery
PROC: 0SR904A Replacement of Right Hip Joint with Ceramic on Polyethylene Synthetic Substitute, Uncemented, Open Approach (ICD-10-PCS; principal; 2017-01-22 10:00)
DX: M16.11 Unilateral primary osteoarthritis, right hip (principal); G57.11 Meralgia paresthetica, right lower limb; M54.16 Radiculopathy, lumbar region; M54.40 Lumbago with sciatica, unspecified side; K59.00 Constipation, unspecified; M81.0 Age-related osteoporosis without current pathological fracture; K58.9 Irritable bowel syndrome, unspecified
CPT/HCPCS: 72170; 73500; 73530; 80048; 81003; 85014; 85018; 86850; 86900; 86901; 86920; 87081; 87086; 93971; 97110; 97116; 97162; 97530; C1776; C9290; J0171; J0690; J0697; J0735; J1100; J1170; J1200; J1885; J2175; J2250; J2274; J2405; J2710; J3010; J3370; J7120

== ENCOUNTER → 2017-02-02 | Outpatient (CLI) | payer BC ==
[~2017-02-02] MED LIST changes: +ALEN40TA2 PO; +ASPI325T32 PO; -BUPIVACAINE LIPOSOME/PF 266 MG/20 ML VIAL INFIL ONE; -CEFAZOLIN 2GM/50 ML (PMX) 50 ML X1 BEFORE INCISION IVPB ONE; -CELECOXIB 400 MG PO X1 DOSE PO ONE; +ESTR2TAB PO; -ETOMIDATE 20 MG INJ ONE; +GABA300C16 PO; +HYDR-3498 PO; -PAIN COCKTAIL-CEFUROXIME IRR ONE; +PANT40TA4 PO; -PREGABALIN 300 MG PO X1 PO ONE; -PROPOFOL 1000 MG INJ ONE; +TRAM-40 PO; +TRAM50TA2 PO; -TRANEXAMIC ACID in SOD CHLORIDE 0.9% 100 ML FOR INTRAOP IVPB ONE; -TRANEXAMIC ACID in SOD CHLORIDE 0.9% 100 ML ON CALL TO OR IV ONE; +TRAZ100T15 PO; -oxyCODONE (CR) 10 MG TAB [oxyCONTIN] X1 DOSE PO ONE; -traMADOL 50 MG TAB X 1 DOSE PO ONE
--- NOTE | 2017-02-02 14:53 | RADRPT ---
PROCEDURE: XR pelvis/right hip. CLINICAL INDICATION: Hip pain TECHNIQUE: AP pelvis/lateral right hip view available for review. COMPARISON: 01/22/2017 FINDINGS: There is a right total hip replacement. There is no evidence of loosening of the prosthesis. There i s no evidence of hardware failure. There are skin anthony lateral to the right hip. There is normal mineralization, architecture and alignment. No fractures are identified. No osseous lesions are pr esent. The sacroiliac joints are unremarkable. The left hip is unremarkable. The soft tissues are unremarkable. IMPRESSION: Right total hip replacement Otherwise an unremarkable examination RPTAT: HGDB .Mason Kyle MD, MD Date Time Electronically viewed and signed by .Mason Kyle MD, on 02/02/2017 14:52 .B/
--- NOTE | 2017-02-03 03:42 | HKNOTE ---
DATE OF SERVICE: 02/02/2017 INTERVAL HISTORY: The patient presents today for her first postoperative evaluation. She is 10 days status post right anterior total hip arthroplasty. She is doing satisfactory overall. She is having some mild discomfort to the right knee as well as a burning sensation which she described in the hospital as well. She has a history of low back problems with radiculopathy and is on Neurontin since that time. She continues to take Neurontin prescribed by another physician. She has also been taking aspirin twice a day for DVT prophylaxis. She denies any fevers or chills. She is working with home health physical therapy. She presents today for her first postoperative evaluation. PHYSICAL EXAMINATION: On examination today, she is alert and oriented x4 and in no acute distress. She is ambulating with a front-wheel walker. Examination of the incision demonstrates it to be clean, dry, and intact. There is no pus or drainage noted. Kendy are in place. There is no erythema or warmth. She has no pain with range of motion of the right hip joint. Compartments are otherwise soft. Homans sign is negative. She is neurovascularly intact distally. IMAGING: X-rays of the right hip are obtained today and reviewed by me. They demonstrate anatomic alignment with no fractures or dislocations identified. ASSESSMENT: 10 days status post right anterior total hip arthroplasty. PLAN: The kendy were removed today, and Steri-Strips were applied. She is to continue ambulating with a front-wheel walker and working with home health physical therapy. She will transition to a cane as deemed appropriate by physical therapy. Additionally, she should continue the Neurontin for the burning sensation described at the dose she was taking preoperatively. She was given a refill of [place] 7.5/325 mg as well as Tramadol 50 mg, quantity #60 each here in the office today. I will see her back in 4 weeks for repeat evaluation. The patient is to call the office in the meantime if she has any concerns. Dictated By: MARIA TERESA CARDOZA for SIRENA LYNN/ETTA Conf#: [id number] DID#: [id number] ELINORD
== END | disposition home or self-care (01) ==
LOC: HKI 10:04
PROVIDERS: ATTEND Orthopaedic Surgery
DX: Z47.1 Aftercare following joint replacement surgery (principal); Z96.641 Presence of right artificial hip joint
CPT/HCPCS: 73502

== ENCOUNTER → 2017-03-02 | Outpatient (CLI) | payer BC ==
--- NOTE | 2017-03-02 16:13 | RADRPT ---
PROCEDURE: XR Right hip and pelvis. CLINICAL INDICATION: Right hip pain. Pelvic pain. Postop. TECHNIQUE: Two views. Frontal pelvis and frontal right hip. COMPARISON: 02/02/2017. FINDINGS: There is no fracture or dislocation. Right lateral skin anthony have been removed. There is a right hip total arthroplasty which appears satisfactory. The left hip is grossly normal. There is no lytic or blastic lesion. The upper pelvis is not completely included on the image. IMPRESSION: 1. Satisfactory postoperative appearance of the right hip. 2. Grossly normal appearance of the left hip. RPTAT: QQ .Rogelio South MD, MD Date Time Electronically viewed and signed by .Rogelio South MD, on 03/02/2017 16:12 .R/
== END | disposition home or self-care (01) ==
LOC: HKI 09:33
PROVIDERS: ATTEND Orthopaedic Surgery
DX: Z47.1 Aftercare following joint replacement surgery (principal); M16.11 Unilateral primary osteoarthritis, right hip; Z96.641 Presence of right artificial hip joint
CPT/HCPCS: 73502

== ENCOUNTER → 2017-03-18 | Outpatient (CLI) | payer BC ==
--- NOTE | 2017-03-18 17:23 | RADRPT ---
PROCEDURE: Right knee radiographs. CLINICAL INDICATION: Right knee pain. TECHNIQUE: Four views. Weight bearing. Frontal, lateral, oblique, and patellar view. COMPARISON: No prior studies are available for comparison. FINDINGS: There is no fracture or dislocation. The soft tissues are normal. Small osteophytes are arising from all 3 joint compartment margins. There is no lytic or blastic lesion. There is no radiopaque foreign body. IMPRESSION: 1. Mild degenerative change. 2. Otherwise normal images of the right knee. RPTAT: QQ .Rogelio South MD, MD Date Time Electronically viewed and signed by .Rogelio South MD, MD on 03/18/2017 17:23 .R/
== END | disposition home or self-care (01) ==
LOC: HKI 08:36
PROVIDERS: ATTEND Orthopaedic Surgery
DX: M25.561 Pain in right knee (principal); M16.11 Unilateral primary osteoarthritis, right hip; M22.41 Chondromalacia patellae, right knee; Z96.641 Presence of right artificial hip joint
CPT/HCPCS: 73564; G0463

== ENCOUNTER 2017-07-06 05:24 | Inpatient (IN) | payer BC ==
[2017-07-06] VITALS (24 sets, daily range): BP systolic 91–115; BP diastolic 40–66; PULSE 79–98; RESP 11–22; Ht 165.1 cm; Wt 58.3 kg
[~2017-07-06] VITALS: Ht 165.1 cm; Wt 58.3 kg
[2017-07-06] MEDS ORDERED: NORE0.35 PO (06:15)
[2017-07-06] MEDS ORDERED: TRAM50TA2 PO (06:15)
[2017-07-06] MEDS ORDERED: GABA300C PO (06:15)
--- NOTE | 2017-07-06 06:46 | HPN ---
Date/Time of Note Date/Time of Note DATE: 07/06/17 TIME: 06:45 Interval H&P Admission Note Pt. seen H&P reviewed: No system changes ERICA FRANCO MD Jul 06, 2017 06:46
[2017-07-06] MEDS ORDERED: LACTATED RINGER'S 1,000 ML IV* ONE (07:00)
[2017-07-06] MEDS ORDERED: BUPIVACAINE 0.25% (MPF) 30 ML INJ ONE (07:00)
[2017-07-06] MEDS ORDERED: CEFAZOLIN 2 GM/50 ML (PMX) 50 ML IVPB ONE (07:00)
[2017-07-06] MEDS ORDERED: GELATIN SIZE 100 SPONGE ONE (07:00)
[2017-07-06] MEDS ORDERED: THROMBIN 5000 UNIT VIAL ONE (07:00)
[2017-07-06] MEDS ORDERED: POLYMYXIN/BACITRACIN 1L IRRIG ONE (07:01)
[2017-07-06] MEDS ORDERED: PROPOFOL 20 ML ONE (07:03)
[2017-07-06] MEDS ORDERED: MIDAZOLAM 1 MG/ML 2 ML INJ ONE (07:03)
[2017-07-06] MEDS ORDERED: FENTAnyl 50 MCG/ML VIAL ONE (07:03)
[2017-07-06] MEDS ORDERED: SUCCINYLCHOLINE CHLORIDE 100 MG/5 ML SYG IV ONE (07:04)
[2017-07-06] MEDS ORDERED: LIDOCAINE 2% (SDV) 5 ML INJ ONE (07:04)
[2017-07-06] MEDS ORDERED: ROCURONIUM 50 MG INJ ONE (07:04)
[2017-07-06] MEDS ORDERED: FAMOTIDINE 20 MG INJ ONE (07:36)
[2017-07-06] MEDS ORDERED: ONDANSETRON 4 MG INJ ONE (07:36)
[2017-07-06] MEDS ORDERED: DEXAMETHASONE 4 MG/ML 1 ML INJ ONE (07:36)
[2017-07-06] MEDS ORDERED: HYDROmorphONE 2 MG/ML SYG ONE (07:44)
[2017-07-06] MEDS ORDERED: EPHEDrine SULFATE 50 MG/5 ML SYG ONE (07:54)
--- NOTE | 2017-07-06 08:26 | RADRPT ---
PROCEDURE: XR Lumbar Spine. CLINICAL INDICATION: Low back pain. TECHNIQUE: 1 views of the lumbar spine available for review COMPARISON: None available FINDINGS: Grade 1 anterolisthesis L4-5 and severe disc space narrowing of L5-S1. Surgical probe devices overlie the L3-4 and L4-5 disc spaces. IMPRESSION: Grade 1 anterolisthesis L4-5 and severe disc space narrowing of L5-S1. Surgical probe devices overlie the L3-4 and L4-5 disc spaces. RPTAT: AA .Codey Yeh MD, Date Time Electronically viewed and signed by .Codey Yeh MD, on 07/06/2017 08:25 .T/
--- NOTE | 2017-07-06 08:27 | RADRPT ---
PROCEDURE: XR Lumbar Spine. CLINICAL INDICATION: Low back pain. TECHNIQUE: 1 views of the lumbar spine available for review COMPARISON: Lumbar x-ray earlier today FINDINGS: Grade 1 anterolisthesis L4-5 and severe disc space narrowing of L5-S1. Surgical probe devices now overlie the L4 and L5 spinous processes. IMPRESSION: Grade 1 anterolisthesis L4-5 and severe disc space narrowing of L5-S1. Surgical probe devices now overlie the L4 and L5 spinous processes. RPTAT: AA .Codey Yeh MD, Date Time Electronically viewed and signed by .Codey Yeh MD, on 07/06/2017 08:27 .T/
[2017-07-06] MEDS ORDERED: SUGAMMADEX SODIUM 200 MG/2 ML VIAL IV ONE ×2 (08:42→08:51)
[2017-07-06] MEDS ORDERED: MEPERIDINE 25 MG INJ ONE (09:06)
--- NOTE | 2017-07-06 09:26 | SIPON ---
Date/Time of Note Date/Time of Note DATE: 07/06/17 TIME: 09:23 Operative Report Preoperative Diagnosis Lumbar spinal stenosis at L4-5 Herniated lumbar disc L5-S1 on the left Postoperative Diagnosis Same Operation/Procedure Performed Central decompressive laminectomy at L4 Left hemilaminotomy L5 Microdiscectomy L5-S1 on the left Medial facetectomy and foraminotomy L4-5 and L5-S1 bilaterally Cosmetic wound closure (5 cm) Lateral localizing lumbar radiographs (2) Intraoperative nerve monitoring (90 minutes) Surgeon see signature line assistant professor nurse education Shelley Garcia PA-C Anesthesia: general Estimated blood loss: 10 - 50 ml's Transfusion Required none Specimen Spinous process of L4 Disc material L5-S1 on the left Grafts/Implants none Complications none ERICA FRANCO MD Jul 06, 2017 09:26
[2017-07-06] MEDS ORDERED: NALOXONE (0.4 MG/ML) INJ IV PRN (09:30)
[2017-07-06] MEDS ORDERED: PROCHLORPERAZINE 10 MG TAB PO PRN (09:30)
[2017-07-06] MEDS ORDERED: ONDANSETRON 4 MG INJ IV PRN ×2 (09:30)
[2017-07-06] MEDS ORDERED: BETHANECHOL 25 MG TAB PO PRN (09:30)
[2017-07-06] MEDS ORDERED: MEPERIDINE 25 MG INJ IV PRN (09:30)
[2017-07-06] MEDS ORDERED: AL HYDROX/MG HYDROX/SIMETH 30 ML CUP PO PRN (09:30)
[2017-07-06] MEDS ORDERED: ACETAMINOPHEN 325 MG TAB PO PRN (09:30)
[2017-07-06] MEDS ORDERED: TRIMETHOBENZAMIDE 100 MG/ML VIAL IM PRN (09:30)
[2017-07-06] MEDS ORDERED: PROCHLORPERAZINE 10 MG INJ IV PRN (09:30)
[2017-07-06] MEDS ORDERED: NACL 0.9% 3 ML SYG IV SCH (09:30)
[2017-07-06] MEDS ORDERED: ZOLPIDEM 5 MG TAB PO PRN (09:30)
[2017-07-06] MEDS ORDERED: HYDROmorphONE (0.2 MG/ML) 10ML SYG IV PRN (09:30)
[2017-07-06] MEDS ORDERED: DIAZEPAM 5 MG/ML SYG IM PRN (09:30)
[2017-07-06] MEDS ORDERED: DIPHENHYDRAMINE 50 MG CAP PO PRN (09:30)
[2017-07-06] MEDS ORDERED: HYDROCODONE/APAP (5/325) TAB PO PRN (09:30)
[2017-07-06] MEDS ORDERED: DIPHENHYDRAMINE 50 MG INJ IV PRN (09:30)
[2017-07-06] MEDS ORDERED: FENTAnyl 50 MCG/ML VIAL IV PRN (09:30)
[2017-07-06] MEDS: HYDROmorphONE 0.2 MG/ML PCA IV SCH ×2 (09:40→21:07)
--- NOTE | 2017-07-06 11:03 | OPR ---
DATE OF OPERATION: 07/06/2017 PREOPERATIVE DIAGNOSES: 1. Lumbar spinal stenosis at L4. 2. Herniated disk L5 to S1 on the left. POSTOPERATIVE DIAGNOSES: 1. Lumbar spinal stenosis at L4. 2. Herniated disk L5 to S1 on the left. OPERATION PERFORMED: 1. Central decompressive laminectomy at L4. 2. Left hemilaminotomy, L5. 3. Microdiskectomy L5 to S1 on the left. 4. Medial facetectomy and foraminotomy, L4 to 5 bilaterally and L5 to S1 on the left. 5. Cosmetic wound closure (5 cm). 6. Lateral localized lumbar radiographs (2). 7. Intraoperative nerve monitoring (90 minutes). SURGEON: Sherwin Sharma MD. INSOLE TACK PULLER HAND: Shelley Garcia PA-C. ANESTHESIA: General endotracheal. ANESTHESIOLOGIST: Elizabeth Bedoya MD. ESTIMATED BLOOD LOSS: 20 mL, none replaced. DRAINS: Two medium Hemovac drains employed. COMPLICATIONS: None. PERTINENT HISTORY AND PHYSICAL: This is a 61-year-old female with persistent back and bilateral leg pain which has been unrelieved by conservative management. She has undergone a number of diagnostic studies including an MRI of the lumbar spine, which demonstrated a moderate central and moderately severe lateral recess stenosis at L4 with a herniated disk L5 to S1 on the left. Treatment options were discussed with the patient, and she elected to proceed with surgery. OPERATIVE PROCEDURE: With the patient in supine position after satisfactory induction of general endotracheal anesthesia by Dr. Bedoya, the patient was turned to the prone kneeling position on the [place] frame. All pressure points were carefully padded. Back was prepped and draped in usual sterile fashion. Athrombic pumps were applied to the legs below the knees to prevent venous stasis during and after procedure. An indwelling Sterling catheter was also placed preoperatively to facilitate bladder drainage during and after the procedure. Two spinal needles were placed next to what was felt to be the L4 and L5 spinous processes, lateral roentgenogram was taken to confirm anatomic localization. A 5-cm incision was carried out midline from L4 to sacrum through skin and subcutaneous tissue to deep fascia after skin was infiltrated with 0.25% Marcaine without epinephrine for postoperative analgesia. Superficial retractors were placed and hemostasis secured with electrocautery. Throughout the procedure, copious amounts of antibacterial irrigating solution were used to periodically irrigate the wound. The fascia was incised in midline with a hot knife and a bilateral subperiosteal dissection carried out from L4 to the sacrum. Deep retractors were placed and deep hemostasis secured with electrocautery. A second intraoperative radiograph was taken with Kaylie clamps placed in what was felt to be the spinous process of L4 and L5. This was confirmed with second x-ray. A central decompressive laminectomy at L4 was then carried out using a Jayce right-angle bone rongeur, Leksell rongeur, Kerrison punches and curettes. Ligamentum flavum was incised with sharp dissection. A left hemilaminotomy at L5 was then carried out using Leksell rongeur, Kerrison punches and curettes. Ligamentum flavum was incised with sharp dissection. The operating microscope was then moved into place. A medial facetectomy and foraminotomy was accomplished at L5-S1 on the left using small hand osteotome, mallet, Kerrison punches and curettes. The S1 root was then mobilized medially and protected with Gem'Adwoa nerve root retractor using microdissection technique. This revealed a small left paracentral herniation at L5 to S1. A 15 blade knife used to cut a rectangular window in the annulus and posterior longitudinal ligament and multiple degenerative disk fragments were harvested with pituitary rongeurs and sent to laboratory for pathologic study. Additional fragments were harvested using Dangelo curettes. A thorough search of the floor of the canal was made with an arthroscopic probe. No additional fragments were encountered. The epidural hemostasis was secured with bipolar electrocautery on low setting. The anesthesiologist was asked to perform a Valsalva maneuver at 40 mmHg and no spinal fluid leak was noted. Attention then turned to the L4 level, where a medial facetectomy and foraminotomy was accomplished bilaterally using small hand osteotome and mallet , Kerrison punches and curettes. The epidural hemostasis was secured with bipolar electrocautery on low setting. Anesthesiologist was asked perform a second Valsalva maneuver at 40 mmHg and no spinal fluid leak was noted. The wound was then closed in layers over 2 medium Hemovac drains, one below the fascia and one above the fascia using #1 Vicryl Stratafix sutures on the deep paralumbar musculature and deep fascia of back, 2-0 Vicryl Stratafix sutures in subQ tissue and a 4-0 Vicryl subcuticular cosmetic closing suture on the skin. Dermabond and sterile compressive dressings were applied. The patient having tolerated procedure well, was then turned to the supine position onto her bed and extubated by Dr. Bedoya. She was transported to the recovery room in satisfactory condition. At the conclusion of the procedure, sponge, instrument , and needle counts were all correct. NEED FOR COOKIE MIXER HELPER: During this spinal surgical procedure, my office assistant was used to retract and protect the spinal nerves and dural sac. My office assistant also employed the suction catheters to evacuate blood from the surgical field to improve visualization of the neural structures. The office assistant was medically necessary to facilitate the completion of the surgery in a safe and expeditious manner. [facility] [place] regulations, as well as hospital bylaws, preclude the use of non-licensed health care personnel such as operating room technicians, to perform these functions. Throughout the procedure, neural monitoring was carried out by [employer] including EMG, SSEP and MEP monitoring of the L3, L4 , L5 and S1 nerve roots bilaterally along with spinal cord potentials. These were interpreted by a neurologist employed by [employer]. Dictated By: SHERWIN SHARMA MD TM/NTS Conf#: [id number] DID#: [id number] CC: JOSE G CASTRO MD;*EndCC* MTDD
[2017-07-06] MEDS: CEFAZOLIN 1 GM/50 ML (PMX) 50 ML IVPB SCH ×3 (12:16→23:32)
[2017-07-06] MEDS: DEXTROSE 5%-0.45% NACL 1,000 ML IV SCH ×4 (12:17→23:27)
[2017-07-06] MEDS ORDERED: VITAMIN A & D 5 GM OINT PACKET TOP ONE ×2 (13:25→13:31)
[2017-07-06] MEDS: CEPASTAT LOZENGE MT PRN ×2 (13:26→20:55)
[2017-07-06] MEDS: GABAPENTIN 300 MG CAP PO SCH ×2 (13:27→20:55)
--- NOTE | 2017-07-06 13:41 | CONS ---
DATE OF ADMISSION: 07/06/2017 DATE OF CONSULTATION: POSTOPERATIVE INTERNAL MEDICINE CONSULTATION Patient had surgery with Dr. Sherwin Franco 07/08/2017. REASON FOR CONSULTATION: Consultation requested by Dr. Sherwin Franco for postop internal medicine c onsultation and followup of a 61-year-old woman who just underwent lumbar spine surgery. Thank you, Dr. Franco, for allowing us to participate in the care of this patient. HISTORY OF PRESENT ILLNESS: Willow Chambers, a 61-year-old woman, this was her third surgery this ye r, started with labral repair on the right hip followed by a total hip replacement and currently her surgery for lumbar spine stenosis. Other than that, she has been quite healthy and really has not had any other major problems in the past other than those related to her pain, which hopefully will be alleviated at this particular point in time. CURRENT MEDICATIONS: Include the followin. Gabapentin 300 mg t.i.d. 2. Tramadol 50 mg 1 q.6 p.r.n. 3. Trazodone 100 mg at bedtime. 4. Norethindrone 0.35 mg 1 tablet or 0.5 daily. ALLERGIES: SHE IS NOT ALLERGIC TO ANY MEDICATIONS. Patient other than this, has really been managing relatively well. SOCIAL HISTORY: The patient is , has children, 1 grandchild and one on the way. She does no t smoke or use any addictive drugs. FAMILY HISTORY: Basically positive for father having diabetes and heart issues. Mother of scl eroderma. There is also some arthritis in the family. Other than that, she knows of no other signi ficant family history. REVIEW OF SYSTEMS: Other than back pain and pain down the legs secondary to that, has been really d oing well overall. PHYSICAL EXAMINATION: VITAL SIGNS: Revealed a blood pressure 104/44, temperature was 98, respirations 19, pulse was 88, a nd O2 is 100%. The patient did have a nasal cannula. HEENT: Head was atraumatic. Eyes: Pupils were equal. LUNGS: Clear. HEART: Revealed a regular rhythm. ABDOMEN: Unremarkable. EXTREMITIES: Unremarkable. IMPRESSION: 1. Status post lumbar spine surgery with decompressive laminectomy at L4, left hemilaminectomy at L 5 and microdiskectomy L5 to S1. 2. Status post total hip replacement on the right side. 3. Menopausal syndrome, on hormone replacement therapy. 4. Chronic pain secondary to back issues. Hopefully, resolved. DISCUSSION: The patient's preoperative medications have been reordered, namely her gabapentin, traz odone and hormone therapy. The patient is receiving pain medication, will not need any more of that other than what she is receiving at this point. CONDITION: Postoperatively is stable. Thank you again, Dr. Franco, for allowing us to participate in care of this patient. Dictated By: JOSE G CASTRO MD SS/NTS Conf#: [id number] DID#: [id number] CC: SHERWIN FRANCO MD;*EndCC*
[2017-07-06] MEDS: DIAZEPAM 5 MG TAB PO PRN ×2 (18:32→23:26)
[2017-07-06] MEDS: RANITIDINE 150 MG TAB PO SCH (20:55)
[2017-07-06] MEDS: traZODone 100 MG TAB PO SCH (20:55)
[2017-07-07] MEDS: DIAZEPAM 5 MG TAB PO PRN ×2 (05:24→12:57)
[2017-07-07] MEDS: CEFAZOLIN 1 GM/50 ML (PMX) 50 ML IVPB SCH (05:44)
[2017-07-07 06:03] LABS: HEMATOCRIT 30.2 % (37.0-47.0)
[2017-07-07 06:56] LABS: CALCIUM 8.1 mg/dl (8.4-10.2); CREATININE 0.7 mg/dl (0.44-1.00); POTASSIUM 3.1 mmol/L (3.5-5.1)
--- NOTE | 2017-07-07 07:09 | PN ---
Date/Time of Note Date/Time of Note DATE: 07/07/17 TIME: 07:08 Assessment/Plan Lines/Catheters IV Catheter Type (from Nrsg): Peripheral IV Sterling in Place (from Nrsg): Yes Subjective 24 Hr Interval Summary Patient is postop day #1 following a decompressive laminectomy at L4, and left hemilaminotomy at L5. She is resting comfortably in bed. Neurovascular structures were intact distally. A.m. lab work is unremarkable except for hypokalemia (3.1). Her Hemovac had minimal drainage and was discontinued. Her wound is clean and dry and was redressed. She will be mobilized as tolerated by physical therapy. If cleared by physical therapy, she may be discharged later today. Exam/Review of Systems Vital Signs Vitals Vital Signs Date Time Temp Pulse Resp B/P Pulse Ox O2 Delivery O2 Flow Rate FiO2 07/06/17 19:10 97.7 82 20 112/57 98 07/06/17 13:45 Nasal Cannula 2.0 Intake and Output 07/06/17 07/06/17 07/07/17 15:00 23:00 07:00 Intake Total 750 ml 900 ml Output Total 305 ml 950 ml 1015 ml Balance -305 ml -200 ml -115 ml Results Result Diagram: 07/07/17 0509 07/07/17 0509 ERICA FRANCO MD Jul 07, 2017 07:09
--- NOTE | 2017-07-07 07:53 | CONS ---
Date/Time of Note Date/Time of Note DATE: 07/07/17 TIME: 07:46 Consult Date/Type/Reason Admit Date/Time Jul 06, 2017 at 05:24 Initial Consult Date 07/06/2017 Reason for Consultation internal medical consult and f/u Ordering Provider: ERICA FRANCO MD Subjective had relatively good night problem in changing positions yesterday and today. some issues with nursing yesterday resolved today Objective Vital Signs Date Time Temp Pulse Resp B/P Pulse Ox O2 Delivery O2 Flow Rate FiO2 07/06/17 19:10 97.7 82 20 112/57 98 07/06/17 13:45 Nasal Cannula 2.0 Intake and Output 07/06/17 07/06/17 07/07/17 15:00 23:00 07:00 Intake Total 750 ml 900 ml Output Total 305 ml 950 ml 1015 ml Balance -305 ml -200 ml -115 ml Exam vss heent negative lungs clear heart regular rhythm abdomen soft Results/Medications Result Diagram: 07/07/17 0509 07/07/17 0509 Results 24 hrs Laboratory Tests Test 07/07/17 05:09 Hemoglobin 10.0 L Hematocrit 30.2 L Sodium Level 140 Potassium Level 3.1 L Chloride Level 108 Carbon Dioxide Level 26 Anion Gap 9 Blood Urea Nitrogen 5 L Creatinine 0.70 Glucose Level 111 Calcium Level 8.1 L Medications Current Medications Dextrose/Sodium Chloride (D5-1/2ns) 1,000 ml @ 100 mls/hr Q10H IV Last administered on 07/06/17t 23:27; Admin Dose 100 MLS/HR; Start 07/06/17 at 09: 18 Acetaminophen/ Hydrocodone Bitart ([place] (5/325)) 1 tab Q4H PRN PO PAIN LEVEL 1 -5; Start 07/06/17 at 09:30; Status Future hold Acetaminophen/ Hydrocodone Bitart ([place] (5/325)) 2 tab Q4H PRN PO PAIN LEVEL 6 -10; Start 07/06/17 at 09:30; Status Future hold Zolpidem Tartrate (Ambien) 5 mg HS PRN PO INSOMNIA; Start 07/06/17 at 09:30 Prochlorperazine (Compazine) 10 mg Q4H PRN PO NAUSEA AND/OR VOMITING; Start at 09:30 Trimethobenzamide HCl (Tigan) 200 mg Q4H PRN IM NAUSEA AND/OR VOMITING; Start 07/06/17 at 09:30 Ondansetron HCl (Zofran Inj) 4 mg Q6H PRN IV NAUSEA AND/OR VOMITING; Start at 09:30 Al Hydrox/Mg Hydrox/Simethicone (Mag-Al Plus) 15 ml Q4H PRN PO CONSTIPATION; Start 07/06/17 at 09:30 Docusate Sodium (Colace) 100 mg BID PO ; Start 07/07/17 at 09:00 Acetaminophen (Tylenol Tab) 650 mg Q4H PRN PO TEMP GREATER THAN 101F OR RUSH; Start 07/06/17 at 09:30 Ascorbic Acid (Vitamin C) 1,000 mg BID PO ; Start 07/07/17 at 09:00 Ferrous Sulfate (Ferrous Sulfate (Ec)) 325 mg TID PO ; Start 07/07/17 at 09:00 Ranitidine HCl (Zantac) 150 mg BID PO Last administered on 07/06/17 20:55; Admin Dose 150 MG; Start 07/06/17 at 21:00 Diazepam (Valium) 5 mg Q4H PRN PO MUSCLE SPASMS Last administered on 05:24; Admin Dose 5 MG; Start 07/06/17 at 09:30 Diazepam (Valium) 5 mg Q4H PRN IM MUSCLE SPASMS; Start 07/06/17 at 09:30 Phenol (Cepastat Lozenge) 1 lozenge PRN PRN MT SORE THROAT Last administered on 07/06/17 20:55; Admin Dose 1 LOZENGE; Start 07/06/17 at 09:30 Bethanechol Chloride (Urecholine) 25 mg PRN PRN PO UNABLE TO VOID; Start 07/06 at 09:30 Diphenhydramine HCl (Benadryl) 50 mg Q6H PRN PO PRURITUS; Start 07/06/17 at 09 :30 Naloxone HCl (Narcan) 0.2 mg Q2M PRN IV RR 8 BREATHS/MIN OR LESS; Start at 09:30 Gabapentin (Neurontin) 300 mg TID PO Last administered on 07/06/17 20:55; Admin Dose 300 MG; Start 07/06/17 at 13:00 Trazodone HCl (Desyrel) 100 mg QHS PO Last administered on 07/06/17t 20:55; Admin Dose 100 MG; Start 07/06/17 at 21:00 Miscellaneous Information 0.5 mg DAILY PO ; Start 07/07/17 at 09:00; Status UNV Bethanechol Chloride (Urecholine) 25 mg PRN PRN PO UNABLE TO VOID; Start 07/07 at 08:00; Status UNV Assessment/Plan Chief Complaint/Hosp Course post op lumbar spine surgery main complaint back pain 2nd to surgery.today catheter will be d/c and increase ambulation Problems: Additional Assessment/Plan lab shows mild hypokalemia will give oral k rest of rx per thank you JOSE G Mendoza MD Jul 07, 2017 07:53
[2017-07-07 08:00] VITALS: BP 111/61; RESP 19
[2017-07-07] MEDS ORDERED: BETHANECHOL 25 MG TAB PO PRN (08:00)
[2017-07-07] MEDS: FERROUS SULFATE (EC) 325 MG TAB PO SCH ×3 (08:44→20:35)
[2017-07-07] MEDS: GABAPENTIN 300 MG CAP PO SCH ×3 (08:44→20:35)
[2017-07-07] MEDS: RANITIDINE 150 MG TAB PO SCH ×2 (08:44→20:35)
[2017-07-07] MEDS: POTASSIUM CHLORIDE (SR) 20 MEQ TAB PO SCH ×2 (08:45→20:35)
[2017-07-07] MEDS: DOCUSATE SODIUM 100 MG CAP PO SCH ×2 (08:45→20:34)
[2017-07-07] MEDS: ASCORBIC ACID 500 MG TAB PO SCH ×2 (08:45→20:34)
[2017-07-07] MEDS: HYDROCODONE/APAP (5/325) TAB PO PRN ×3 (08:46→20:34)
[2017-07-07] MEDS ORDERED: NORETHINDRONE PO SCH (09:00)
[2017-07-07 10:04] LABS: ADD UMIC YES; UR ASCORBIC ACID NEGATIVE (NEGATIVE); UR BILIRUBIN (Dip) NEGATIVE (NEGATIVE); UR BLOOD (Dip) 1+ mg/dL (NEGATIVE); UR CLARITY CLEAR (CLEAR); UR COLOR STRAW (YELLOW); UR GLUCOSE (Dip) NEGATIVE (NEGATIVE); UR KETONES (Dip) NEGATIVE (NEGATIVE); UR LEUKOCYTE ESTERASE (Dip) NEGATIVE Leu/ul (NEGATIVE); UR NITRITE (Dip) NEGATIVE (NEGATIVE); UR RBC 55 /HPF (0-5); UR SPECIFIC GRAVITY (Dip) 1.004 (1.003-1.030); UR SQUAMOUS EPITHELIAL CELL FEW /HPF (FEW); UR TOTAL PROTEIN (Dip) NEGATIVE (NEGATIVE); UR UROBILINOGEN (Dip) NEGATIVE (NEGATIVE)
[2017-07-07 14:47] VITALS: BP 96/49; RESP 18
[2017-07-07] MEDS: DEXTROSE 5%-0.45% NACL 1,000 ML IV SCH (15:18)
[2017-07-07] MEDS ORDERED: SUMATRIPTAN 50 MG TAB PO PRN (17:00)
[2017-07-07 20:00] VITALS: BP 116/55; RESP 18
[2017-07-07] MEDS: traZODone 100 MG TAB PO SCH (20:35)
[2017-07-08] MEDS: HYDROCODONE/APAP (5/325) TAB PO PRN ×2 (01:41→05:37)
[2017-07-08] MEDS: DEXTROSE 5%-0.45% NACL 1,000 ML IV SCH ×2 (01:43→11:18)
[2017-07-08 02:00] VITALS: BP 90/46; RESP 18
[2017-07-08 06:09] LABS: BASOPHILS % 0.6 % (0.0-2.0); HEMATOCRIT 33.9 % (37.0-47.0); LYMPHOCYTES # 2.4 10^3/ul (0.8-2.9); LYMPHOCYTES % 34.6 % (15.0-51.0); MEAN CORPUSCULAR HEMOGLOBIN 29.4 pg (29.0-33.0); MEAN CORPUSCULAR HGB CONC 32.4 g/dl (32.0-37.0); MEAN CORPUSCULAR VOLUME 90.6 fl (82.0-101.0); MEAN PLATELET VOLUME 10.2 fl (7.4-10.4); MONOCYTE # 0.6 10^3/ul (0.3-0.9); MONOCYTES % 9.2 % (0.0-11.0); NEUTROPHIL # 3.8 10^3/ul (1.6-7.5); NEUTROPHILS % 55.5 % (39.0-77.0); PLATELET COUNT 319 10^3/UL (140-415); RED BLOOD COUNT 3.74 10^6/ul (4.20-5.40); WHITE BLOOD COUNT 6.8 10^3/ul (4.8-10.8)
[2017-07-08 06:42] LABS: CALCIUM 8.5 mg/dl (8.4-10.2); CREATININE 0.74 mg/dl (0.44-1.00); POTASSIUM 3.8 mmol/L (3.5-5.1)
--- NOTE | 2017-07-08 07:06 | PN ---
Date/Time of Note Date/Time of Note DATE: 07/08/17 TIME: 07:05 Assessment/Plan Lines/Catheters IV Catheter Type (from Nrsg): Peripheral IV Sterling in Place (from Nrsg): Yes Subjective 24 Hr Interval Summary Patient is postop day #2 following decompressive laminectomy at L4 and microdiscectomy at L5 on the left. She was cleared by physical therapy yesterday but was having a severe headache and back pain, and her discharge was postponed. She is still complaining of headache and back pain this morning. She is afebrile. Neurovascular structures are intact distally. I anticipate she can be discharged later today when cleared by internal medicine. Strict discharge precautions, instructions, and follow-up arrangements have been made. Exam/Review of Systems Vital Signs Vitals Vital Signs Date Time Temp Pulse Resp B/P Pulse Ox O2 Delivery O2 Flow Rate FiO2 07/08/17 02:00 98.6 91 18 90/46 93 07/06/17 13:45 Nasal Cannula 2.0 Intake and Output 07/07/17 07/07/17 07/08/17 15:00 23:00 07:00 Intake Total 1100 ml 1100 ml 1200 ml Output Total 1400 ml 1200 ml Balance 1100 ml -300 ml 0 ml Results Result Diagram: 07/08/17 0456 07/08/17 0456 ERICA FRANCO MD Jul 08, 2017 07:06
--- NOTE | 2017-07-08 08:00 | CONS ---
Date/Time of Note Date/Time of Note DATE: 07/08/17 TIME: 07:54 Consult Date/Type/Reason Admit Date/Time Jul 06, 2017 at 05:24 Initial Consult Date 07/06/2017 Reason for Consultation medical management and f/u Ordering Provider: ERICA FRANCO MD Subjective headache slightly better still not totally gone however improving, Objective Vital Signs Date Time Temp Pulse Resp B/P Pulse Ox O2 Delivery O2 Flow Rate FiO2 07/08/17 02:00 98.6 91 18 90/46 93 07/06/17 13:45 Nasal Cannula 2.0 Intake and Output 07/07/17 07/07/17 07/08/17 15:00 23:00 07:00 Intake Total 1100 ml 1100 ml 1200 ml Output Total 1400 ml 1200 ml Balance 1100 ml -300 ml 0 ml Exam vss bp slightly down heent negative lungs clear heart regular rhythm abdomen soft posterior neck tight muscles Results/Medications Result Diagram: 07/08/17 0456 07/08/17 0456 Results 24 hrs Laboratory Tests Test 07/07/17 09:04 07/08/17 04:56 Urine Color STRAW Urine Clarity CLEAR Urine pH 6.0 Urine Specific [place] 1.004 Urine Ketones NEGATIVE Urine Nitrite NEGATIVE Urine Bilirubin NEGATIVE Urine Urobilinogen NEGATIVE Urine Leukocyte Esterase NEGATIVE Urine Microscopic RBC 55 H Urine Microscopic WBC 4 Urine Squamous Epithelial Cells FEW Urine Hemoglobin 1+ H Urine Glucose NEGATIVE Urine Total Protein NEGATIVE White Blood Count 6.8 Red Blood Count 3.74 L Hemoglobin 11.0 L Hematocrit 33.9 L Mean Corpuscular Volume 90.6 Mean Corpuscular Hemoglobin 29.4 Mean Corpuscular Hemoglobin Concent 32.4 Red Cell Distribution Width 13.0 Platelet Count 319 Mean Platelet Volume 10.2 Neutrophils % 55.5 Lymphocytes % 34.6 Monocytes % 9.2 Eosinophils % 0.0 Basophils % 0.6 Nucleated Red Blood Cells % 0.0 Neutrophils # 3.8 Lymphocytes # 2.4 Monocytes # 0.6 Eosinophils # 0.0 Basophils # 0.0 Nucleated Red Blood Cells # 0.0 Sodium Level 141 Potassium Level 3.8 Chloride Level 110 Carbon Dioxide Level 27 Anion Gap 8 Blood Urea Nitrogen 6 L Creatinine 0.74 Glucose Level 97 Calcium Level 8.5 Medications Current Medications Dextrose/Sodium Chloride (D5-1/2ns) 1,000 ml @ 100 mls/hr Q10H IV Last administered on 07/08/17 01:43; Admin Dose 100 MLS/HR; Start 07/06/17 at 09: 18 Acetaminophen/ Hydrocodone Bitart ([place] (5/325)) 1 tab Q4H PRN PO PAIN LEVEL 1 -5; Start 07/06/17 at 09:30; Status Future hold Acetaminophen/ Hydrocodone Bitart ([place] (5/325)) 2 tab Q4H PRN PO PAIN LEVEL 6 -10 Last administered on 07/08/17 05:37; Admin Dose 2 TAB; Start 07/06/17 at 09:30; Status Future hold Zolpidem Tartrate (Ambien) 5 mg HS PRN PO INSOMNIA; Start 07/06/17 at 09:30 Prochlorperazine (Compazine) 10 mg Q4H PRN PO NAUSEA AND/OR VOMITING; Start at 09:30 Trimethobenzamide HCl (Tigan) 200 mg Q4H PRN IM NAUSEA AND/OR VOMITING; Start 07/06/17 at 09:30 Ondansetron HCl (Zofran Inj) 4 mg Q6H PRN IV NAUSEA AND/OR VOMITING; Start at 09:30 Al Hydrox/Mg Hydrox/Simethicone (Mag-Al Plus) 15 ml Q4H PRN PO CONSTIPATION; Start 07/06/17 at 09:30 Docusate Sodium (Colace) 100 mg BID PO Last administered on 07/07/17 20:34; Admin Dose 100 MG; Start 07/07/17 at 09:00 Acetaminophen (Tylenol Tab) 650 mg Q4H PRN PO TEMP GREATER THAN 101F OR RUSH Last administered on 07/07/17 12:57; Admin Dose 650 MG; Start 07/06/17 at 09: 30 Ascorbic Acid (Vitamin C) 1,000 mg BID PO Last administered on 07/07/17 20:34 ; Admin Dose 1,000 MG; Start 07/07/17 at 09:00 Ferrous Sulfate (Ferrous Sulfate (Ec)) 325 mg TID PO Last administered on 07/07 20:35; Admin Dose 325 MG; Start 07/07/17 at 09:00 Ranitidine HCl (Zantac) 150 mg BID PO Last administered on 07/07/17 20:35; Admin Dose 150 MG; Start 07/06/17 at 21:00 Diazepam (Valium) 5 mg Q4H PRN PO MUSCLE SPASMS Last administered on 12:57; Admin Dose 5 MG; Start 07/06/17 at 09:30 Diazepam (Valium) 5 mg Q4H PRN IM MUSCLE SPASMS; Start 07/06/17 at 09:30 Phenol (Cepastat Lozenge) 1 lozenge PRN PRN MT SORE THROAT Last administered on 07/06/17 20:55; Admin Dose 1 LOZENGE; Start 07/06/17 at 09:30 Bethanechol Chloride (Urecholine) 25 mg PRN PRN PO UNABLE TO VOID Last administered on 07/07/17 08:45; Admin Dose 25 MG; Start 07/06/17 at 09:30 Diphenhydramine HCl (Benadryl) 50 mg Q6H PRN PO PRURITUS; Start 07/06/17 at 09 :30 Naloxone HCl (Narcan) 0.2 mg Q2M PRN IV RR 8 BREATHS/MIN OR LESS; Start at 09:30 Gabapentin (Neurontin) 300 mg TID PO Last administered on 07/07/17 20:35; Admin Dose 300 MG; Start 07/06/17 at 13:00 Trazodone HCl (Desyrel) 100 mg QHS PO Last administered on 07/07/17 20:35; Admin Dose 100 MG; Start 07/06/17 at 21:00 Bethanechol Chloride (Urecholine) 25 mg PRN PRN PO UNABLE TO VOID; Start 07/07 at 08:00 Potassium Chloride (Klor-Con 20) 20 meq BID PO Last administered on 07/07/17 20:35; Admin Dose 20 MEQ; Start 07/07/17 at 09:00 Sumatriptan Succinate (Imitrex) 100 mg DAILY PRN PO MIGRAINE HEADACHE Last administered on 07/07/17 17:49; Admin Dose 100 MG; Start 07/07/17 at 17:00 Assessment/Plan Chief Complaint/Hosp Course post op lumbar spine surgery main complaint back pain 2nd to surgery.today catheter will be d/c and increase ambulation Problems: Additional Assessment/Plan will see how day progresses with mpt if stable could be discharged will evaluate at noJOSE G Rasmussen MD Jul 08, 2017 08:00
[2017-07-08 08:14] VITALS: BP 84/38; RESP 18
[2017-07-08] MEDS ORDERED: SOD CHLORIDE 0.9% 500 ML IV ONE (08:30)
[2017-07-08] MEDS: ASCORBIC ACID 500 MG TAB PO SCH (08:36)
[2017-07-08] MEDS: FERROUS SULFATE (EC) 325 MG TAB PO SCH ×2 (08:36→12:23)
[2017-07-08] MEDS: DOCUSATE SODIUM 100 MG CAP PO SCH (08:36)
[2017-07-08] MEDS: RANITIDINE 150 MG TAB PO SCH (08:36)
[2017-07-08] MEDS: POTASSIUM CHLORIDE (SR) 20 MEQ TAB PO SCH (08:36)
[2017-07-08] MEDS: GABAPENTIN 300 MG CAP PO SCH ×2 (08:36→12:23)
[2017-07-08 10:58] VITALS: BP 86/39; PULSE 77; RESP 18
[2017-07-08 12:24] VITALS: BP 119/50; PULSE 85; RESP 16
[2017-07-08 12:26] VITALS: BP 95/58; PULSE 89; RESP 18
[2017-07-08 12:43] VITALS: BP 105/53; RESP 18
== END 2017-07-08 15:13 | disposition home or self-care (01) | DRG 520 ==
LOC: REC 05:24 → MS1 10:53
PROVIDERS: ADMIT Orthopaedic Surgery; ATTEND Orthopaedic Surgery
PROC: 0SB40ZZ Excision of Lumbosacral Disc, Open Approach (ICD-10-PCS; 2017-07-06)
PROC: 4A11X4Z Monitoring of Peripheral Nervous Electrical Activity, External Approach (ICD-10-PCS; 2017-07-06)
PROC: 01NB0ZZ Release Lumbar Nerve, Open Approach (ICD-10-PCS; principal; 2017-07-06 07:00)
DX: M48.061 Spinal stenosis, lumbar region without neurogenic claudication (principal); E87.6 Hypokalemia; M51.27 Other intervertebral disc displacement, lumbosacral region; Z78.0 Asymptomatic menopausal state; Z96.641 Presence of right artificial hip joint; Z79.890 Hormone replacement therapy; G89.29 Other chronic pain
CPT/HCPCS: 72020; 80048; 81001; 85014; 85018; 85025; 86850; 86900; 86901; 86920; 87086; 97116; 97162; 97530; J0690; J1100; J1170; J2175; J2250; J2405; J3010; J7040; J7042; J7120